=== PATIENT | female | born 1970 | race Caucasian/White ===

== ENCOUNTER → 2020-01-13 13:29 | Outpatient (BNVA) | payer SELFPAY | PROVIDERS: Referring Provider Physician Assistant Medical; Visit Provider Podiatrist Foot & Ankle Surgery | DX: M21.612 Bunion of left foot (principal); M21.611 Bunion of right foot; M79.671 Pain in right foot; M79.672 Pain in left foot | CPT/HCPCS: 73630 ==

== ENCOUNTER 2021-07-27 06:00 | Outpatient (RCR) | payer OTHER, SELFPAY | END 2021-08-02 23:59 | disposition home or self-care (01) | LOC: SPT 06:00 | PROVIDERS: PCP Family Medicine; Referring Provider Otolaryngology; Visit Provider Otolaryngology | DX: H81.10 Benign paroxysmal vertigo, unspecified ear (principal) | CPT/HCPCS: 95992; 97112; 97162 ==

== ENCOUNTER → 2023-04-30 13:58 | Outpatient (BNVA) | payer MEDICAID, SELFPAY | PROVIDERS: PCP Family Medicine; Visit Provider Nurse Practitioner Women's Health | DX: N89.8 Other specified noninflammatory disorders of vagina (principal); Z79.899 Other long term (current) drug therapy | CPT/HCPCS: 81000; 87624 ==

== ENCOUNTER 2023-07-02 09:07 | Day surgery (SDC) | payer OTHER, SELFPAY ==
[2023-07-02 09:20] VITALS: BP 162/74; PULSE 59; RESP 18; TEMP 36.4; O2SAT 96
--- NOTE | 2023-07-02 09:22 | P.ANESASSM_ITS ---
Pre-Anesthetic Assessment Height/Weight: Height 1.52 m Preop Diagnosis: screening Operation Date: 07/02/23 10:15 Proposed Procedures p [id number] egd [id number] colon G0121 screen colon A risk Z12.11 , K21.9(Not Applicable) - Ervin Calloway DO s Colonoscopy(Not Applicable) - Ervin Calloway DO Familial anesthetic complications: None Was Beta Danny taken within 24 hours: Yes Was Clonidine taken within 24 hours: N/A Last intake: 07/01/23 @2100 Social No alcohol and No tobacco Exam alert, oriented x 3 and regular rate & rhythm Airway Mallampati: Class II Dentition: full History/ROS No significant history except as noted Pulmonary None reported CV/HEM None reported None reported Hepatic None reported GI Gastroesophageal Reflux Disease Metabolic None reported Musc/skel Lower Back Pain Neuropsych migranes Anesthetic Plan ASA status: 3 Anesthesia: MAC Risk of > 500 ml blood loss (7ml/kg in children): No Medications/Allergies Home Medications Medication Instructions Recorded Confirmed Last Taken Type dimenhydrinate 50 mg tablet 50 mg PO Q8H PRN Motion Sickness 04/23/22 06/30/23 Unknown History (Dramamine) propranolol 40 mg tablet 40 mg PO BID 04/30/23 06/30/23 06/23/23 History estradiol 10 mcg vaginal tablet 10 mcg vaginal DAILY #30 tabs 05/01/23 06/30/23 06/30/23 Rx (Vagifem) escitalopram oxalate 20 mg tablet 20 mg PO DAILY 30 days #30 tabs 05/27/23 06/30/23 06/30/23 Rx pantoprazole 40 mg tablet,delayed 40 mg PO BID 6 weeks #84 tabs 05/29/23 06/30/23 06/30/23 Rx release (Protonix) oxybutynin chloride 5 mg 5 mg PO DAILY 06/30/23 06/30/23 06/30/23 History tablet,extended release 24 hr Allergies Allergy/AdvReac Type Severity Reaction Status Date / Time heparin Allergy Mild Unknown Verified 05/28/23 14:13 aspirin Allergy ALGY-Hives Verified 05/28/23 14:13 [facility] Anesthesia Medical History Psychiatric care Hypertension History of migraine Surgical History History of hysterectomy Family History Other Cancer Denies family history of Diabetes CAD (coronary artery disease) Clotting disorder Dementia Hyperlipidemia Psychiatric illness Chronic kidney disease (CKD) Suicide Anesthesia complication Bleeding disorder Family history of premature coronary artery disease Lung disease Hypertension Stroke Data Anesthesia Cardiac Studies: No Data to Display
[2023-07-02 09:31] VITALS: BMI 44.3
[2023-07-02] MEDS: sodium chloride 0.9% 1,000 ML 30 ML IV (10:00)
--- NOTE | 2023-07-02 10:09 | PM.HP ---
Providers/Chief Complaint Primary Care Provider: Indra Hines Chief Complaint: Z12.11, K21.9 History of Present Illness Yadira Elena is a 53 year old female Review of Systems General: Reports: 10 or more systems reviewed and unremarkable except in HPI and below Medications/Allergies Home Medications Medication Instructions Recorded Confirmed Last Taken Type dimenhydrinate 50 mg tablet 50 mg PO Q8H PRN Motion Sickness 04/23/22 06/30/23 Unknown History (Dramamine) propranolol 40 mg tablet 40 mg PO BID 04/30/23 06/30/23 06/23/23 History estradiol 10 mcg vaginal tablet 10 mcg vaginal DAILY #30 tabs 05/01/23 06/30/23 06/30/23 Rx (Vagifem) escitalopram oxalate 20 mg tablet 20 mg PO DAILY 30 days #30 tabs 05/27/23 06/30/23 06/30/23 Rx pantoprazole 40 mg tablet,delayed 40 mg PO BID 6 weeks #84 tabs 05/29/23 06/30/23 06/30/23 Rx release (Protonix) oxybutynin chloride 5 mg 5 mg PO DAILY 06/30/23 06/30/23 06/30/23 History tablet,extended release 24 hr Allergies Allergy/AdvReac Type Severity Reaction Status Date / Time heparin Allergy Mild Unknown Verified 05/28/23 14:13 aspirin Allergy ALGY-Hives Verified 05/28/23 14:13 PFSH Acute PFSH: Medical History Psychiatric care Hypertension History of migraine Surgical History History of hysterectomy Family History Other Cancer Denies family history of Diabetes CAD (coronary artery disease) Clotting disorder Dementia Hyperlipidemia Psychiatric illness Chronic kidney disease (CKD) Suicide Anesthesia complication Bleeding disorder Family history of premature coronary artery disease Lung disease Hypertension Stroke Vitals/I&O/Wt Last Vital Signs Temp 97.5 F L 07/02/23 09:20 Pulse 59 L 07/02/23 09:20 Resp 18 07/02/23 09:20 BP 162/74 07/02/23 09:20 Pulse Ox 96 07/02/23 09:20 O2 Del Method Room Air 07/02/23 09:20 Weight last 48 hrs Weight 227 lb A&P Assessment and plan (1) GERD (gastroesophageal reflux disease): (2) Colon cancer screening: Plan EGD and Colonoscopy Attestations Medical Necessity Statement*: home Coding Level of Care Code Acute Code for Chg Fwd Diagnoses GERD (gastroesophageal reflux disease) K21.9 Colon cancer screening Z12.11
[2023-07-02 10:30] VITALS: BP 134/75; PULSE 77; RESP 18; TEMP 36.6; O2SAT 95
[2023-07-02 10:45] VITALS: BP 152/75; PULSE 70; RESP 18; O2SAT 96
--- NOTE | 2023-07-02 15:25 | ANE.PACU2 ---
Inpatient post-anesthesia follow up: Airway intact: Yes Vital signs: Temperature 97.9 F Pulse Rate 70 Respiratory Rate 18 Blood Pressure 152/75 Pulse Oximetry 96 Oxygen Delivery Me thod Room Air Oxygen Flow Rate Fraction of Inspir ed Oxygen Hydration adequate: Yes Nausea and vomiting: No Pain level: 2 Mental status: Baseline
== END 2023-07-02 11:17 | disposition home or self-care (01) ==
PROVIDERS: PCP Family Medicine; Visit Provider Surgery
PROC: 0DJ08ZZ Inspection of Upper Intestinal Tract, Via Natural or Artificial Opening Endoscopic (ICD-10-PCS; CPT 43235; principal; 2023-07-02 10:15)
PROC: 0DJD8ZZ Inspection of Lower Intestinal Tract, Via Natural or Artificial Opening Endoscopic (ICD-10-PCS; CPT 45378; 2023-07-02 10:15)
DX: Z12.11 Encounter for screening for malignant neoplasm of colon (principal); K21.9 Gastro-esophageal reflux disease without esophagitis; I10 Essential (primary) hypertension; K29.50 Unspecified chronic gastritis without bleeding; K57.30 Diverticulosis of large intestine without perforation or abscess without bleeding
CPT/HCPCS: 43239; 45378; 88305; 88342; J2704; J3490; J7030

== ENCOUNTER 2023-07-30 16:22 | Inpatient (IN) | payer OTHER, SELFPAY ==
[2023-07-30 16:24] VITALS: BP 156/111; PULSE 98; RESP 18; TEMP 36.8; O2SAT 93; BMI 46.4
--- NOTE | 2023-07-30 16:32 | W.ED.PSYCHS ---
HPI - Psych General: Chief Complaint: Psychiatric Symptoms Stated Complaint: depression Time Seen by Provider: 07/30/23 16:22 Source: EMS Mode of arrival: EMS Limitations: no limitations History of Present Illness: 53-year-old female history depression states she has been having increasing depression over the last week states that she is feeling overwhelmed and is having passing suicidal thoughts. She denies any specific plan she has been taking her meds she states that she feels like she needs a voluntary admission to the psych [facility] to get help she has had no previous admissions in the past. Associated symptoms: Reports depression and suicidal ideation Review of Systems Const: Denies: fever(s), chills, body aches or change in appetite Eyes: Denies: blurry vision or eye discomfort Card: Denies: chest pain Resp: Denies: dyspnea GI: Denies: abdominal pain, nausea, vomiting or diarrhea Musc: Denies: neck pain or back pain Skin/Breast: Denies: rash Neuro: Denies: headache(s) Psych: Reports: depression and suicidal ideation [facility] ED PFSH: Medical History Psychiatric care Hypertension History of migraine Surgical History History of hysterectomy Family History Other Cancer Denies family history of Diabetes CAD (coronary artery disease) Clotting disorder Dementia Hyperlipidemia Psychiatric illness Chronic kidney disease (CKD) Suicide Anesthesia complication Bleeding disorder Family history of premature coronary artery disease Lung disease Hypertension Stroke Physical Exam Const: COMMON NORMALS: no acute distress, patient oriented x3 and healthy appearing HENMT: COMMON NORMALS: normocephalic and atraumatic HEAD & SCALP: normocephalic and atraumatic Eye: COMMON NORMALS: conjunctivae normal CONJUNCTIVA: Yes conjunctivae normal Neck/C-Spine: COMMON NORMALS: full ROM and supple Chest: COMMONS NORMALS: normal inspection of the chest Resp: COMMON NORMALS: normal respiratory effort Cardio: COMMON NORMALS: regular rate RATE: regular rate Extremity: COMMON NORMALS: normal to inspection and full ROM Neuro: COMMON NORMALS: patient oriented x3, moves all extremities and no focal motor deficits Psych: COMMON NORMALS: mental status grossly normal, Normal thought process present and cooperative MOOD & AFFECT: Yes tearful THOUGHT PROCESS: Normal thought process present THOUGHT CONTENT: Yes Suicidality present Skin: COMMON NORMALS: no rashes or lesions noted and no wounds GENERAL SKIN EXAM: no rashes or lesions noted Course Vital Signs: Vital signs: Vital Signs Temperature 98.2 F 07/30/23 16:24 Pulse Rate 98 07/30/23 17:21 Respiratory Rate 18 07/30/23 16:24 Blood Pressure 164/11 07/30/23 17:21 Pulse Oximetry 95 07/30/23 17:30 Oxygen Delivery Me thod Room Air 07/30/23 17:30 MDM - Psych Medical Decision Making Patient presents here with depression she is medically cleared she voluntarily wants to be admitted I spoke to psychiatrist will admit to the psych [facility] at this time Medical Records I reviewed the patient's medical records. Lab Data I reviewed the patient's lab results. 07/30/23 16:55 07/30/23 16:55 Laboratory Results WBC 5.54 10^3/uL (3.29-11.43) 07/30/23 16:55 RBC 4.39 10^6/uL (3.85-5.65) 07/30/23 16:55 Hgb 13.90 g/dL (11.27-16.99) 07/30/23 16:55 Hct 41.9 % (36-47) 07/30/23 16:55 MCV 95.4 fl (85-98) 07/30/23 16:55 MCH 31.7 pg (27-33) 07/30/23 16:55 MCHC 33.2 g/dL (30-55) 07/30/23 16:55 RDW 11.5 % (12.1-15.1) L 07/30/23 16:55 Plt Count 272 10^3/cmm (157-399) 07/30/23 16:55 MPV 8.8 fL (7.4-10.4) 07/30/23 16:55 Neut % (Auto) 37.1 % 07/30/23 16:55 Lymph % (Auto) 54.2 % 07/30/23 16:55 Baca % (Auto) 6.0 % 07/30/23 16:55 Eos % (Auto) 1.6 % 07/30/23 16:55 Baso % (Auto) 0.7 % 07/30/23 16:55 Neut # (Auto) 2.06 10^3/uL (1.8-7.7) 07/30/23 16:55 Lymph # (Auto) 3.0 10^3/uL (0.8-4.8) 07/30/23 16:55 Baca # (Auto) 0.3 10^3/uL (0.2-0.9) 07/30/23 16:55 Eos # (Auto) 0.1 10^3/uL (0.0-0.8) 07/30/23 16:55 Baso # (Auto) 0.0 10^3/uL (0.0-0.1) 07/30/23 16:55 Nucleated RBC % (auto) 0 % 07/30/23 16:55 Nucleated RBCs # 0.0 /100WBC 07/30/23 16:55 Sodium 140 mmol/L (136-145) 07/30/23 16:55 Potassium 4.3 mmol/L (3.5-5.1) 07/30/23 16:55 Chloride 103 mmol/L (98-107) 07/30/23 16:55 Carbon Dioxide 25 mmol/L (22-29) 07/30/23 16:55 Anion Gap 16.3 (5-19) 07/30/23 16:55 BUN 10 mg/dL (6-20) 07/30/23 16:55 Creatinine 0.6 mg/dL (0.5-0.9) 07/30/23 16:55 GFR Calculation 103.8 mL/min (90-130) 07/30/23 16:55 Glucose 114 mg/dL (65-115) 07/30/23 16:55 Calculated Osmolality 290 mOsm/kg (285-295) 07/30/23 16:55 Calcium 10.0 mg/dL (8.5-10.5) 07/30/23 16:55 Total Bilirubin 0.4 mg/dL (0.15-1.2) 07/30/23 16:55 AST 19 U/L (0-32) 07/30/23 16:55 ALT 31 U/L (0-33) 07/30/23 16:55 Alkaline Phosphatase 126 U/L (35-105) H 07/30/23 16:55 Total Protein 7.7 g/dL (6.6-8.7) 07/30/23 16:55 Albumin 4.3 g/dL (3.5-5.2) 07/30/23 16:55 Globulin 3.4 g/dL (1.3-4.6) 07/30/23 16:55 Salicylates < 0.3 mg/dL (3-10) L 07/30/23 16:55 Acetaminophen < 5.0 ug/mL (10-30) L 07/30/23 16:55 Ethyl Alcohol < 10 mg/dL (0-10) 07/30/23 16:55 No radiology studies performed this visit Discharge Plan Discharge Patient Disposition: Admitted As Inpatient Admit Provider: Jose Angel Mcgrath Clinical Impression: Depression Condition: Stable Coding Level of Care Code ED 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
[2023-07-30] MEDS: LORazepam 1 mg Tablet 2 MG PO (16:54)
[2023-07-30 17:08] LABS: Basophils % 0.7 %; Eosinophils # 0.1 10^3/uL (0.0-0.8); Eosinophils % 1.6 %; Hematocrit 41.9 % (36-47); Lymphocytes % 54.2 %; Mean Corpuscular HGB Conc 33.2 g/dL (30-55); Mean Corpuscular Hemoglobin 31.7 pg (27-33); Mean Corpuscular Volume 95.4 fl (85-98); Mean Platelet Volume 8.8 fL (7.4-10.4); Monocytes # 0.3 10^3/uL (0.2-0.9); Neutrophils # 2.06 10^3/uL (1.8-7.7); Neutrophils % 37.1 %; Nucleated Red Blood Cells % 0 %; Platelet Count 272 10^3/cmm (157-399); Red Blood Count 4.39 10^6/uL (3.85-5.65); Red Cell Distribution Width 11.5 % (12.1-15.1); White Blood Count 5.54 10^3/uL (3.29-11.43)
[2023-07-30 17:21] VITALS: BP 164/11; PULSE 98
[2023-07-30 17:30] VITALS: O2SAT 95
[2023-07-30 17:30] LABS: Alanine Aminotransferase 31 U/L (0-33); Albumin Level 4.3 g/dL (3.5-5.2); Alkaline Phosphatase 126 U/L (35-105); Anion Gap 16.3 (5-19); Aspartate Amino Transferase 19 U/L (0-32); Blood Urea Nitrogen 10 mg/dL (6-20); Carbon Dioxide 25 mmol/L (22-29); Chloride 103 mmol/L (98-107); Creatinine Clr Calc Pharmacy 174.4804; Globulin 3.4 g/dL (1.3-4.6); Glomerular Filtration Rate 103.8 mL/min (90-130); Glucose 114 mg/dL (65-115); Osmolality Calculated 290 mOsm/kg (285-295); Potassium 4.3 mmol/L (3.5-5.1); Sodium 140 mmol/L (136-145); Total Bilirubin 0.4 mg/dL (0.15-1.2); Total Protein 7.7 g/dL (6.6-8.7)
[2023-07-30 17:37] LABS: Acetaminophen < 5.0 ug/mL (10-30); Alcohol Level < 10 mg/dL (0-10); Salicylate < 0.3 mg/dL (3-10)
[2023-07-30] MEDS: metoprolol tartrate 25 mg Tablet PO (17:46)
[2023-07-30 18:06] VITALS: BP 151/93; PULSE 98; RESP 16; TEMP 36.6; O2SAT 98
[2023-07-30 19:24] LABS: Amphetamines Screen Urine Negative (Negative); Barbiturates Screen Urine Negative (Negative); Benzodiazepines Screen Urine Negative (Negative); Cocaine Screen Urine Negative (Negative); Opiate Screen Urine Negative (Negative); PCP Screen Urine Negative (Negative); THC Screen Urine Negative (Negative)
[2023-07-30 20:05] VITALS: BP 138/83; PULSE 90; RESP 15; TEMP 36.8; O2SAT 97
[2023-07-30] MEDS: nortriptyline 10 mg Capsule PO (20:36)
[2023-07-31 06:00] VITALS: BP 112/64; PULSE 98; RESP 17; TEMP 36.6; O2SAT 99
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
[2023-07-31] MEDS: escitalopram 10 mg Tablet 20 MG PO (08:08)
[2023-07-31] MEDS: oxybutynin chloride XL 5 MG TABLET PO (08:08)
[2023-07-31 14:00] VITALS: BP 116/71; PULSE 107; RESP 20; TEMP 36.6; O2SAT 96
[2023-07-31 19:39] VITALS: BP 167/96; PULSE 108; RESP 17; TEMP 36.7; O2SAT 96
[2023-07-31] MEDS: escitalopram 10 mg Tablet PO (20:35)
[2023-07-31] MEDS: nortriptyline 10 mg Capsule PO (20:35)
[2023-07-31] MEDS: acetaminophen 325 mg Tablet 650 MG PO (21:17)
[2023-08-01 06:00] VITALS: BP 129/75; PULSE 99; RESP 17; TEMP 36.6; O2SAT 96
--- NOTE | 2023-08-01 13:46 | P.NPUPN_ITS ---
Subjective NPU 2 Subjective: Patient presented today reporting that she is doing okay. She got her about both of Lexapro and is now at 30 mg daily and reports that she is feeling better. We discussed the ability of including a low-dose of Abilify but currently she is feeling like this might be what she needed. We discussed being able to make sure that her outpatient team is aware of our thinking. She denies any side effects to the medication. Mental Status Exam 2 MSE Comments: This is a morbidly obese [place] born female in hospital scrubs with adequate grooming and eye contact. No abnormal movements except for mild psychomotor retardation. Cooperative with exam and mild to moderate distress. Speech was normal rate and decreased volume. Mood described as depressed and overwhelmed, affect congruent. Thought process organized. Thought content: Patient denied current suicidal or homicidal ideation, there were no delusions reported or noted, she denied any auditory or visual hallucinations. Patient has significant depression and anxiety. She has issues with traumas from the past. She has thoughts of suicide but has not acted on them due to her grandbabies. She does not have problems with hearing things, seeing things, or paranoia. She has nightmares and flashbacks about past traumas.Attention and concentration were intact and memory appeared reliable but none were formally tested. She alert and oriented x 3. Insight and judgment appear fair impulse control limited. Vitals/I&O/Wt Last Vital Signs Temp 97.8 F 08/01/23 06:00 Pulse 99 08/01/23 06:00 Resp 17 08/01/23 06:00 BP 129/75 08/01/23 06:00 Pulse Ox 96 08/01/23 06:00 O2 Del Method Room Air 08/01/23 06:00 Weight last 48 hrs Weight 104.326 kg Data NPU 07/30/23 16:55 07/30/23 16:55 A&P Assessment and plan (1) PTSD (post-traumatic stress disorder): (2) Major depressive disorder: (3) Parent-child relational problem: (4) Marital/partner relational problem: (5) History of narcotic addiction: Plan This is a 53year old white female with a long history of addiction, trauma depression and significant recent challenges with PTSD who presents on medication reporting that she continues to have worsening of her symptoms. Patient is dealing with significant depression and anxiety, along with past traumas and a disintegrating relationship with her ex. She has a history of suicide attempts and has thoughts of suicide but has not acted on them. She has been diagnosed with PTSD. 1. Continue current medication. Increased Lexapro to 30 mg p.o. daily and consider possibly adding a mood stabilizer like Abilify. 2. Encourage individual, group and milieu therapy 3. Continue q-15 minute check for safety 4. Get collateral information. Involuntary Hold Information 2 96 Hour Hold: 96 Hour Involuntary Admission: No Attestations NPU 2 Medical Necessity Statement*: Inpatient hospitalization is medically necessary and the clinically appropriate intervention at this time. We will monitor medications and make changes as indicated. Likely length of stay is 2-4 days. Coding Level of Care Code Acute Code for [facility] Diagnoses PTSD (post-traumatic stress disorder) F43.10 Major depressive disorder F32.9 Parent-child relational problem Z62.820 Marital/partner relational problem Z63.0 History of narcotic addiction F11.21
[2023-08-01 14:00] VITALS: BP 135/84; PULSE 96; RESP 16; TEMP 36.6; O2SAT 95
[2023-08-01 20:11] VITALS: BP 134/68; PULSE 101; RESP 17; TEMP 36.7; O2SAT 95
[2023-08-01] MEDS: meclizine 25 mg tablet PO (20:30)
[2023-08-01] MEDS: escitalopram 10 mg Tablet 30 MG PO (20:30)
[2023-08-01] MEDS: oxybutynin chloride XL 5 MG TABLET PO (20:30)
[2023-08-01] MEDS: nortriptyline 10 mg Capsule PO (20:30)
[2023-08-02 06:00] VITALS: BP 130/77; PULSE 107; RESP 17; TEMP 36.6; O2SAT 97
--- NOTE | 2023-08-02 11:47 | P.NPUPN_ITS ---
Subjective NPU 2 Subjective: Patient presented today reporting that she is feeling a little better overall and is starting to feel optimistic about things moving back in the right direction. She reports she has been going to groups and getting a lot out of that and trying to his mindfulness. She reports the increase in the Lexapro has been effective and she denied any side effects of the medication. We agreed to the targeted discharge date of Friday. Mental Status Exam 2 MSE Comments: This is a morbidly obese [place] born female in hospital scrubs with adequate grooming and eye contact. No abnormal movements except for mild psychomotor retardation. Cooperative with exam and mild distress. Speech was normal rate and decreased volume. Mood described as starting to feel better, affect congruent. Thought process organized. Thought content: Patient denied current suicidal or homicidal ideation, there were no delusions reported or noted, she denied any auditory or visual hallucinations. Patient has significant depression and anxiety. She has issues with traumas from the past. She does not have problems with hearing things, seeing things, or paranoia. She has nightmares and flashbacks about past traumas.Attention and concentration were intact and memory appeared reliable but none were formally tested. She alert and oriented x 3. Insight and judgment appear fair impulse control limited. Vitals/I&O/Wt Last Vital Signs Temp 97.8 F 08/02/23 06:00 Pulse 107 H 08/02/23 06:00 Resp 17 08/02/23 06:00 BP 130/77 08/02/23 06:00 Pulse Ox 97 08/02/23 06:00 O2 Del Method Room Air 08/02/23 06:00 Data NPU 07/30/23 16:55 07/30/23 16:55 A&P Assessment and plan (1) PTSD (post-traumatic stress disorder): (2) Major depressive disorder: (3) Parent-child relational problem: (4) Marital/partner relational problem: (5) History of narcotic addiction: Plan This is a 53year old white female with a long history of addiction, trauma depression and significant recent challenges with PTSD who presents on medication reporting that she continues to have worsening of her symptoms. Patient is dealing with significant depression and anxiety, along with past traumas and a disintegrating relationship with her ex. She has a history of suicide attempts and has thoughts of suicide but has not acted on them. She has been diagnosed with PTSD. 1. Continue current medication. Increased Lexapro to 30 mg p.o. daily and we agreed to leave the decision of possibly adding a small dose of Abilify to her outpatient team. 2. Encourage individual, group and milieu therapy 3. Continue q-15 minute check for safety 4. Plan for discharge on Friday. Involuntary Hold Information 2 96 Hour Hold: 96 Hour Involuntary Admission: No Attestations NPU 2 Medical Necessity Statement*: Inpatient hospitalization is medically necessary and the clinically appropriate intervention at this time. We will monitor medications and make changes as indicated. Likely length of stay is 2 days. Coding Level of Care Code Acute Code for [facility] Diagnoses PTSD (post-traumatic stress disorder) F43.10 Major depressive disorder F32.9 Parent-child relational problem Z62.820 Marital/partner relational problem Z63.0 History of narcotic addiction F11.21
[2023-08-02 14:00] VITALS: BP 162/83; PULSE 105; RESP 16; TEMP 36.8; O2SAT 94
[2023-08-02] MEDS: ibuprofen 600 mg Tablet PO (14:44)
[2023-08-02 19:31] VITALS: BP 167/72; PULSE 99; RESP 17; TEMP 37.2; O2SAT 96
[2023-08-02] MEDS: meclizine 25 mg tablet PO (20:18)
[2023-08-02] MEDS: escitalopram 10 mg Tablet 30 MG PO (20:18)
[2023-08-02] MEDS: oxybutynin chloride XL 5 MG TABLET PO (20:18)
[2023-08-02] MEDS: nortriptyline 10 mg Capsule PO (20:19)
[2023-08-03 06:00] VITALS: BP 143/91; PULSE 98; RESP 16; TEMP 36.6; O2SAT 95
--- NOTE | 2023-08-03 11:50 | P.NPUPN_ITS ---
Subjective NPU 2 Subjective: Patient presented today reporting that she is feeling a little better and more optimistic about how things are going. She reports that she continues to feel like she will be ready to discharge tomorrow. We discussed making sure the social work team was able to get her appointments scheduled. She denied any side effects of the medication and continue to report a desire to move forward with this increase in Lexapro and consider the need for other changes later. Mental Status Exam 2 MSE Comments: This is a morbidly obese [place] born female in hospital scrubs with adequate grooming and eye contact. No abnormal movements except for mild psychomotor retardation. Cooperative with exam in no acute distress. Speech was normal rate and decreased volume. Mood described as feeling better, affect congruent. Thought process organized. Thought content: Patient denied current suicidal or homicidal ideation, there were no delusions reported or noted, she denied any auditory or visual hallucinations. Patient has significant depression and anxiety. She has issues with traumas from the past. She does not have problems with hearing things, seeing things, or paranoia. She has nightmares and flashbacks about past traumas.Attention and concentration were intact and memory appeared reliable but none were formally tested. She alert and oriented x 3. Insight and judgment appear fair impulse control limited. Vitals/I&O/Wt Last Vital Signs Temp 97.8 F 08/03/23 06:00 Pulse 98 08/03/23 06:00 Resp 16 08/03/23 06:00 BP 143/91 08/03/23 06:00 Pulse Ox 95 08/03/23 06:00 O2 Del Method Room Air 08/03/23 06:00 Weight last 48 hrs Weight 104.326 kg Data NPU 07/30/23 16:55 07/30/23 16:55 A&P Assessment and plan (1) PTSD (post-traumatic stress disorder): (2) Major depressive disorder: (3) Parent-child relational problem: (4) Marital/partner relational problem: (5) History of narcotic addiction: Plan This is a 53year old white female with a long history of addiction, trauma depression and significant recent challenges with PTSD who presents on medication reporting that she continues to have worsening of her symptoms. Patient is dealing with significant depression and anxiety, along with past traumas and a disintegrating relationship with her ex. She has a history of suicide attempts and has thoughts of suicide but has not acted on them. She has been diagnosed with PTSD. 1. Continue current medication. Increased Lexapro to 30 mg p.o. daily and we agreed to leave the decision of possibly adding a small dose of Abilify to her outpatient team. 2. Encourage individual, group and milieu therapy 3. Continue q-15 minute check for safety 4. Plan for discharge on Friday. Involuntary Hold Information 2 96 Hour Hold: 96 Hour Involuntary Admission: No Attestations NPU 2 Medical Necessity Statement*: Inpatient hospitalization is medically necessary and the clinically appropriate intervention at this time. We will monitor medications and make changes as indicated. Likely length of stay is 1 days. Coding Level of Care Code Acute Code for [facility] Diagnoses PTSD (post-traumatic stress disorder) F43.10 Major depressive disorder F32.9 Parent-child relational problem Z62.820 Marital/partner relational problem Z63.0 History of narcotic addiction F11.21
[2023-08-03 14:00] VITALS: BP 146/85; PULSE 95; RESP 16; TEMP 36.7; O2SAT 98
[2023-08-03] MEDS: nortriptyline 10 mg Capsule PO (20:07)
[2023-08-03] MEDS: escitalopram 10 mg Tablet 30 MG PO (20:07)
[2023-08-03] MEDS: meclizine 25 mg tablet PO (20:08)
[2023-08-03] MEDS: oxybutynin chloride XL 5 MG TABLET PO (20:08)
[2023-08-03 20:41] VITALS: BP 149/96; PULSE 95; RESP 17; TEMP 36.8; O2SAT 95
[2023-08-04 06:00] VITALS: BP 140/83; PULSE 99; RESP 17; TEMP 36.4; O2SAT 96
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
== END 2023-08-04 10:04 | disposition home or self-care (01) | DRG 881 ==
LOC: ER 16:50 → NP 17:03
PROVIDERS: Admitting Provider Psychiatry & Neurology Psychiatry; Emergency Provider Emergency Medicine; PCP Family Medicine; Visit Provider Psychiatry & Neurology Psychiatry
DX: F32.9 Major depressive disorder, single episode, unspecified (principal); R45.851 Suicidal ideations; Z68.42 Body mass index [BMI] 45.0-49.9, adult; I10 Essential (primary) hypertension; E66.01 Morbid (severe) obesity due to excess calories; F43.10 Post-traumatic stress disorder, unspecified; F11.11 Opioid abuse, in remission; Z63.0 Problems in relationship with spouse or partner; Z62.820 Parent-biological child conflict
CPT/HCPCS: 36415; 80053; 80306; 80307; 85025; 97150; 97165; 99285; J8597

== ENCOUNTER 2023-08-20 10:43 | Outpatient (CLI) | payer OTHER, SELFPAY ==
--- NOTE | 2023-08-20 11:30 | MM_ITS ---
WS: [id number] VIEWS: MLO and CC views both breasts. 3D digital tomosynthesis is also included in this exam. No priors. Findings: There was no sign of mass, architectural distortion or suspicious calcification in either breast. The breasts are almost entirely fatty. Impression: MM/[place] [id number] BI-RADS: 1-Negative FOLLOW-UP: 1 Year Follow-up This mammogram was also analyzed by the Computer Aided Detection System R2 [employer].
== END 2023-08-20 10:44 | disposition home or self-care (01) ==
LOC: RAD 10:43
PROVIDERS: PCP Family Medicine; Visit Provider Nurse Practitioner Women's Health
DX: Z12.31 Encounter for screening mammogram for malignant neoplasm of breast (principal)
CPT/HCPCS: 77063; 77067

== ENCOUNTER → 2023-10-28 08:08 | Outpatient (BNVA) | payer OTHER, SELFPAY | PROVIDERS: PCP Family Medicine; Visit Provider Orthopaedic Surgery | DX: M54.9 Dorsalgia, unspecified (principal) | CPT/HCPCS: 72110 ==

== ENCOUNTER → 2023-11-04 16:08 | Outpatient (BNVA) | payer OTHER, SELFPAY | PROVIDERS: PCP Family Medicine; Visit Provider Orthopaedic Surgery | DX: M48.062 Spinal stenosis, lumbar region with neurogenic claudication (principal); Z09 Encounter for follow-up examination after completed treatment for conditions other than malignant neoplasm | CPT/HCPCS: 80053; 81003; 85025 ==

== ENCOUNTER → 2023-11-14 10:04 | Outpatient (BNVA) | payer OTHER, SELFPAY | PROVIDERS: PCP Family Medicine; Visit Provider Family Medicine | DX: Z01.818 Encounter for other preprocedural examination (principal) | CPT/HCPCS: 80053; 81003; 85025; 87086 ==

== ENCOUNTER 2024-02-11 13:04 | Observation (INO) | payer OTHER, SELFPAY ==
[2024-02-11] VITALS (16 sets, daily range): BP systolic 82–146; BP diastolic 61–87; PULSE 71–92; RESP 16–18; TEMP 36.2–36.7; O2SAT 91–100; BMI 45.0
--- NOTE | 2024-02-11 | XR_ITS ---
WS: [id number] XR lumbar spine 2-3V* [id number] REASON FOR EXAM: EMMA PICS FINDINGS: Posterior decompression with bilateral posterior pedicle screws L4-S1. Interbody fusion devices L4-L5 and L5-S1. Surgical appliances are intact and in proper position and alignment. XR/XR lumbar spine 2-3V* [id number] IMPRESSION: Posterior lumbar fusion without abnormality as above.
[2024-02-11] MEDS: sodium chloride 0.9% 1,000 ML 30 ML IV (11:14)
--- NOTE | 2024-02-11 12:19 | W.PM.OPSFHP ---
Same Day Surgery H&P Indication for Procedure/HPI DATE OF PROCEDURE: February 11, 2024 CHIEF COMPLAINT/INDICATIONFOR SURGICAL PROCEDURE: Back and left leg pain PREOP DIAGNOSIS: Lumbar stenosis with neurogenic claudication PLANNED PROCEDURE: Operation Date: 02/11/24 13:00 Proposed Procedures p Spinal Fusion PSF(Not Applicable) - Galo Coley DO s Posterior Lumbar Interbody Fusion PLIF(Not Applicable) - Galo Coley DO Medications/Allergies* Home Medications Medication Instructions Recorded Confirmed Type escitalopram oxalate 20 mg tablet 30 mg PO BEDTIME 02/10/24 02/10/24 History oxybutynin chloride 5 mg 5 mg PO QPM 02/10/24 02/10/24 History tablet,extended release 24 hr pantoprazole 40 mg tablet,delayed 40 mg PO QPM 02/10/24 02/10/24 History release (Protonix) Allergies/Adverse Reactions Allergy/AdvReac Type Severity Reaction Status Date / Time heparin Allergy Mild Unknown Verified 11/14/23 10:12 aspirin Allergy ALGY-Hives Verified 11/14/23 10:12 Current Medications: Generic Name Dose Route Start Last Admin Trade Name Freq PRN Reason Stop Dose Admin Sodium Chloride 1,000 mls @ 30 mls/hr 02/11/24 10:45 02/11/24 11:14 Sodium Chloride 0.9% IV 02/12/24 10:44 30 mls/hr .Q24H ROQUE Administration Pertinent History/Comorbid Conditions* Medical History (Updated 10/28/23 @ 08:46 by Galo Coley DO) Depression Psychiatric care Hypertension History of migraine Surgical History (Updated 08/07/21 @ 13:37 by Dave Vizcarra MD) History of hysterectomy Family History (Updated 01/13/20 @ 13:51 by Eula Colin LPN) Cancer Denies family history of Diabetes CAD (coronary artery disease) Clotting disorder Dementia Hyperlipidemia Psychiatric illness Chronic kidney disease (CKD) Suicide Anesthesia complication Bleeding disorder Family history of premature coronary artery disease Lung disease Hypertension Stroke Social History Smoking and tobacco/nicotine status: never used tobacco/nicotine Pertinent Exam Findings alert, oriented x 3 and procedure specific exam findings Recommendations Surgery/Procedure today Coding Level of Care Code Acute Code for Chg Fwd
--- NOTE | 2024-02-11 12:23 | ANES.PREANE2 ---
Pre-Anesthetic Assessment Height/Weight: Height 1.5 m Weight 101.151 kg Temp Pulse Resp BP Pulse Ox O2 Del Method 98.0 F 71 17 146/75 97 Room Air 02/11/24 10:59 02/11/24 10:59 02/11/24 10:59 02/11/24 10:59 02/11/24 10:59 02/11/24 10:59 Preop Diagnosis: Lumbar stenosis with neurogenic claudication Operation Date: 02/11/24 13:00 Proposed Procedures p Spinal Fusion PSF(Not Applicable) - Galo Coley DO s Posterior Lumbar Interbody Fusion PLIF(Not Applicable) - Galo Coley DO Familial anesthetic complications: None Was Beta Danny taken within 24 hours: N/A Was Clonidine taken within 24 hours: N/A Last intake: Intake Last Liquid Date 02/10/24 Last Liquid Time 21:00 Last Solid Date 02/10/24 Last Solid Time 21:00 Social No alcohol and No tobacco Exam alert, oriented x 3, clear to auscultation bilaterally and regular rate & rhythm Airway Mallampati: Class IV Dentition: chipped (Back R upper molar broken) Pulmonary Sleep Apnea Metabolic Morbid Obesity Anesthetic Plan ASA status: 2 Anesthesia: General Risk of > 500 ml blood loss (7ml/kg in children): Yes, adequate IV access and fluids planned Medications/Allergies Home Medications Medication Instructions Recorded Confirmed Last Taken Type Bone Growth Stimulator #1 ea 02/09/24 Unknown Rx escitalopram oxalate 20 mg tablet 30 mg PO BEDTIME 02/10/24 02/10/24 02/10/24 History oxybutynin chloride 5 mg 5 mg PO QPM 02/10/24 02/10/24 02/10/24 History tablet,extended release 24 hr pantoprazole 40 mg tablet,delayed 40 mg PO QPM 02/10/24 02/10/24 02/10/24 History release (Protonix) Allergies Allergy/AdvReac Type Severity Reaction Status Date / Time heparin Allergy Mild Unknown Verified 11/14/23 10:12 aspirin Allergy ALGY-Hives Verified 11/14/23 10:12 Current Medications Generic Name Dose Route Start Last Admin Trade Name Freq PRN Reason Stop Dose Admin Sodium Chloride 1,000 mls @ 30 mls/hr 02/11/24 10:45 02/11/24 11:14 Sodium Chloride 0.9% IV 02/12/24 10:44 30 mls/hr .Q24H ROQUE Administration PFSH Anesthesia Medical History Depression Psychiatric care Hypertension History of migraine Surgical History History of hysterectomy Family History Other Cancer Denies family history of Diabetes CAD (coronary artery disease) Clotting disorder Dementia Hyperlipidemia Psychiatric illness Chronic kidney disease (CKD) Suicide Anesthesia complication Bleeding disorder Family history of premature coronary artery disease Lung disease Hypertension Stroke Social History Smoking and tobacco/nicotine status: never used tobacco/nicotine Data Anesthesia Cardiac Studies: No Data to Display
[2024-02-11] MEDS: ceFAZolin 2,000 mg SDV 2000 MG IVP ×2 (13:08→20:59)
[2024-02-11] MEDS: vancomycin 1,000 MG SDV 1000 MG XX (14:02)
[2024-02-11] MEDS: lidocaine-epi 1% 20 mL INJ INJECTION (14:03)
--- NOTE | 2024-02-11 16:26 | P.OP_ITS ---
Operative Report Date of procedure: February 11, 2024 Pre-op diagnosis: Lumbar stenosis with neurogenic claudication Post-op diagnosis: same Procedure done: 1. L5/S1 Interbody fusion wposterolateral fusion 2. L4/5 Interbody fusion with posterolateral fusion 3. Instrumentation L4-S1 4. Cage at L4/5 5. Cage L5/S1 6. L5-S1 laminectomy with facetectomy for purpose of decompressing nerve 7. L4-5 laminectomy with facetectomy for purpose of decompressing nerve 8. use of autograft from same incision 9. allograft 10. Bone marrow aspirate from right iliac crest 11. Use of computer navigation / stereotactic for spine Surgeon: Galo Coley DO Estimated blood loss (mL): 600 Procedure: Operative Report 1. L5/S1 Interbody fusion wposterolateral fusion 2. L4/5 Interbody fusion with posterolateral fusion 3. Instrumentation L4-S1 4. Cage at L4/5 5. Cage L5/S1 6. L5-S1 laminectomy with facetectomy for purpose of decompressing nerve 7. L4-5 laminectomy with facetectomy for purpose of decompressing nerve 8. use of autograft from same incision 9. allograft 10. Bone marrow aspirate from right iliac crest 11. Use of computer navigation / stereotactic for spine Patient is brought to the operative suite. After undergoing anesthesia, the patient had neuro monitoring attached. Patient was then placed in the prone position on the Sergei table. All areas of impingement were well-padded. Patient was then prepped and draped in the normal sterile fashion. Skin inc ision was then made from L4-S1. Subperiosteal dissection was made out to the transverse processes of L4 bilaterally, L5 bilaterally and S1 ala bilaterally. Attention was then brought to the Yapert bone marrow aspirate kit was used to aspirate bone marrow aspirate. This was done by using the sharp probe to open up the bone. Aspiration was performed and then the blunt probe was then used to dissect down to through the bone tunnel. An aspirating well drawn back a millimeter approximately 20 cc of bone marrow aspirate was used. Admixed with the allograft and autograft bone that will be used. Patient is brought to present to pins in the right iliac crest. These pins were removed at the end the case. This is where the fiducial was attached with computer navigation. The computer navigation was attached and the serial jose and spun on the patient information from the C-arm was then loaded the computer for the use of computer navigation for pedicle screws. The technique for placing the pedicle screws was to use a drill followed by the gearshift probe linked to computer navigation. Followed by the ball probe to feel the superior inferior medial lateral cortez of the pedicles. Then placement of the screws using computer navigation. Was done at each pedicle. Screws were placed at L4 bilaterally, L5 bilaterally and S1 bilaterally. Next attention was brought to performing the laminectomy ofL5. This was done using the high-speed bur Kerrisons and curettes. Once the lamina was removed and then attention was brought to performing a partial facetectomy on the contralateral side. This was done again using the high-speed bur curettes and Kerrisons. The ligamentum flavum was taken down bilaterally from L5 to S1. Attention was then brought to the facet on the ipsilateral side. The facet was taken down. The S1 nerve was decompressed as it passed around the S1 pedicle. The laminectomy was done for purposes of decompressing the nerve as well as placement of the cage. The L5 nerve was identified as it traversed through the L5/S1 foramen. The thecal sac was identified and retracted. The L5/S1 disc base was identified. Using a knife the disc base was opened. And then sequential patricia were placed. The first shaver was a 6 and the last shaver was a 12. Using a pituitary and down going curette the endplates were scraped and disc material was removed from the space. Once adequate decompression of the disc base was felt to be had. Osteoamp sponge was packed into the anterior aspect of the disc base. Then a size 13 cage from [employer] was placed after packing osteoamp into the cage. While placing the cage the thecal sac and S1 nerve was protected. C arm was used to ensure that the cages placed in the appropriate position. Next attention was brought to performing the laminectomy ofL4. This was done using the high-speed bur Kerrisons and curettes. Once the lamina was removed and then attention was brought to performing a partial facetectomy on the contralateral side. This was done again using the high-speed bur curettes and Kerrisons. The ligamentum flavum was taken down bilaterally from L4 to L5. Attention was then brought to the facet on the ipsilateral side. The facet was taken down. The L5 nerve was decompressed as it passed around the L5 pedicle. The laminectomy was done for purposes of decompressing the nerve as well as placement of the cage. The L4 nerve was identified as it traversed through the L4/5 foramen. The thecal sac was identified and retracted. The L4/5 disc base was identified. Using a knife the disc base was opened. And then sequential patricia were placed. The first shaver was a 6 and the last shaver was a 12. Using a pituitary and down going curette the endplates were scraped and disc mat erial was removed from the space. Once adequate decompression of the disc base was felt to be had. Osteoamp sponge was packed into the anterior aspect of the disc base. Then a size 13 cage from [employer] was placed after packing osteoamp into the cage. While placing the cage the thecal sac and L5 nerve was protected. C arm was used to ensure that the cages placed in the appropriate position. Attention was then brought to attaching the rods to the screws placed in the L 4 bilaterally, L5 bilaterally and S1 bilaterally. Caps were torqued into position. Locking the construct in place. Wound was copiously irrigated and then attention was brought to decorticating the facets and transverse processes laterally. Bone that was taken down from the lamina was used along with osteoamp fibers and sponges were packed into the lateral gutters along the facet joints. This was done bilaterally. Wound was then closed in a layered fashion starting with the thoracolumbar fascia. 0-vicryl was used the sub cutaneous tissue was closed with 2-0 vicryl and skin with 4-0 monocryl. Glue was then used to seal the skin and a steril dressing was applied. Patient was then placed in the supine position. The endotracheal tube was removed and patient was transferred to the PACU in stable condition.
--- NOTE | 2024-02-11 17:30 | ANE.PACU2 ---
Inpatient post-anesthesia follow up: Airway intact: Yes Vital signs: Temperature 98.3 F Pulse Rate 97 Respiratory Rate 15 Blood Pressure 113/63 Pulse Oximetry 91 Oxygen Delivery Me thod Room Air Oxygen Flow Rate 2 Fraction of Inspir ed Oxygen Hydration adequate: Yes Nausea and vomiting: No Pain level: 1 Mental status: Baseline
[2024-02-11] MEDS: lactated ringers 1,000 ML 90 ML IV (19:05)
[2024-02-11] MEDS: oxybutynin chloride XL 5 MG TABLET PO (19:06)
[2024-02-11] MEDS: docusate sodium 100 mg Capsule PO (19:06)
[2024-02-11] MEDS: ketorolac 30 mg/mL INJ IVP (19:06)
[2024-02-11] MEDS: pantoprazole DR 40 mg Tablet PO (19:06)
[2024-02-11] MEDS: morphine 4 mg/mL SDV 1 mL 2 MG IVP ×2 (20:33→22:09)
[2024-02-11] MEDS: escitalopram 10 mg Tablet 30 MG PO (20:59)
[2024-02-11] MEDS: HYDROcodone-acetaminophen 5-325 mg Tablet PO (21:05)
[2024-02-12] VITALS (10 sets, daily range): BP systolic 91–177; BP diastolic 48–72; PULSE 79–97; RESP 15–18; TEMP 36.6–37.7; O2SAT 91–97
[2024-02-12] MEDS: morphine 4 mg/mL SDV 1 mL 2 MG IVP ×3 (02:46→22:52)
[2024-02-12] MEDS: ketorolac 30 mg/mL INJ IVP ×2 (02:46→13:36)
[2024-02-12] MEDS: HYDROcodone-acetaminophen 5-325 mg Tablet PO ×4 (03:54→23:50)
[2024-02-12] MEDS: ceFAZolin 2,000 mg SDV 2000 MG IVP ×2 (05:32→13:36)
[2024-02-12] MEDS: lactated ringers 1,000 ML 90 ML IV (05:33)
[2024-02-12 05:47] LABS: Hematocrit 26.7 % (36-47)
--- NOTE | 2024-02-12 07:59 | P.PN_ITS ---
Subjective 2 Subjective: Patient is complaining of numbness and weakness in the left leg. It is improved since last night is just in the foot now patient has 4-5 strength plantarflexion dorsiflexion. This point will get up with physical therapy Vitals/I&O/Wt Last Vital Signs Temp 98.8 F 02/12/24 04:28 Pulse 97 02/12/24 04:28 Resp 18 02/12/24 05:34 BP 131/72 02/12/24 04:28 Pulse Ox 97 02/12/24 05:34 O2 Del Method Room Air 02/11/24 20:25 O2 Flow Rate 2 02/11/24 20:25 02/11/24 02/12/24 02/12/24 22:59 06:59 14:59 Intake Total 1640 / 1640 1902 / 3542 Output Total 1450 / 1450 810 / 2260 Balance 190 / 190 1092 / 1282 Weight last 48 hrs Weight 229 lb 14.4 oz Weight 224 lb Weight 223 lb Physical Exam 2 Narrative: Peripheral strength plantarflexion dorsiflexion of the left foot. Decreased sensation. Has improved since last night patient stated. Urinary Catheter Management: Shah: Cath Placed During This Visit: yes Reason for Continuing Indwelling Catheter: Required Immobilization for Trauma or Surgery or Anesthesia Urinary Catheter Date of Insertion: 02/11/24 Urinary Catheter Time of Insertion: 13:19 Data 02/12/24 05:12 A&P Assessment and plan (1) Status post lumbar spinal fusion: Postop day #1 L4-S1 posterior spine fusion Up with physical therapy Anticipate discharge tomorrow. Attestations 2 Medical Necessity Statement*: Pain control Coding Level of Care Code Acute Code for Chg Fwd Diagnoses Status post lumbar spinal fusion Z98.1
[2024-02-12] MEDS: docusate sodium 100 mg Capsule PO ×2 (08:58→17:27)
--- NOTE | 2024-02-12 10:14 | PC.CHAP ---
Pastoral Care Encounter/Spiritual Assessment Type of Contact [] Declined vineyard tender visit [] Patient/Family/Request visit [] Outpatient visit [] Follow-up visit [] Physician referral [] Code/Alert [x] Routine visit [] Staff referral [] Actively dying [] Patient sleeping [] Family support [] [] Out of room [] Palliative care [] [] Receiving care in room [] Pre-surgical visit [] Trauma [] Long length of stay [] ICU visit [] Other: Relational/Emotional Strength [x] Patient feels connected with others/family/visitors/staff [] Distress [] Loneliness/isolation [] Abandonment Spirituality of Patient [x] Person of Ritu [] Attends Oriental Orthodox of their Ritu [x] Believes in Prayer [] Reads Bible or Yazdanism materials [] There are Spiritual issues to be addressed Construction [employer]or Interventions [x] Prayer [x] Active listening [x] Non-anxious presence [x] Spiritual/emotional support [] Crisis/trauma care [] Spiritual counseling [] Bereavement support [] Provided bereavement packet [] Provided Bible/devotional materials [] Provided toy/stuffed animal, coloring book to patient or family member [] Provided Communion [] Anointing/[place] [] Salvation [x] Completed spiritual assessment [] Other: Impact on Illness or Injury [] Angry [] Fearful [] Anxious [] Often cries [] Exhaustion [] Unable to work [] Unable to attend caodaism [] Unable to walk/stand [] Unable to read [] Unable to drive [] Unable to eat/drink [] Unable to sleep [] Unable to be with family [] Patient intubated [] Other: Summary Time spent with patient 5 min
[2024-02-12 14:45] LABS: Basophils % 0.1 %; Hematocrit 23.6 % (36-47); Lymphocytes # 2.3 10^3/uL (0.8-4.8); Lymphocytes % 17.3 %; Mean Corpuscular HGB Conc 32.6 g/dL (30-55); Mean Corpuscular Hemoglobin 31.7 pg (27-33); Mean Corpuscular Volume 97.1 fl (85-98); Mean Platelet Volume 9.5 fL (7.4-10.4); Monocytes # 1.1 10^3/uL (0.2-0.9); Neutrophils # 9.69 10^3/uL (1.8-7.7); Neutrophils % 74.2 %; Nucleated Red Blood Cells % 0 %; Platelet Count 185 10^3/cmm (157-399); Red Blood Count 2.43 10^6/uL (3.85-5.65); Red Cell Distribution Width 12.4 % (12.1-15.1); White Blood Count 13.06 10^3/uL (3.29-11.43)
[2024-02-12] MEDS: pantoprazole DR 40 mg Tablet PO (17:27)
[2024-02-12] MEDS: oxybutynin chloride XL 5 MG TABLET PO (17:27)
[2024-02-12] MEDS: sodium chloride 0.9% 1,000 ML 125 ML IV (22:52)
[2024-02-12] MEDS: cyclobenzaprine 10 mg Tablet PO (22:54)
[2024-02-12] MEDS: escitalopram 10 mg Tablet 30 MG PO (22:54)
[2024-02-13] VITALS (7 sets, daily range): BP systolic 120–128; BP diastolic 55–65; PULSE 72–82; RESP 16–18; TEMP 36.8–36.9; O2SAT 90–95
[2024-02-13] MEDS: acetaminophen 325 mg Tablet 650 MG PO (03:38)
[2024-02-13] MEDS: oxyCODONE 5 mg IR Tab/Cap PO ×2 (03:39→12:25)
[2024-02-13] MEDS: ketorolac 30 mg/mL INJ IVP (05:11)
[2024-02-13] MEDS: cyclobenzaprine 10 mg Tablet PO (05:11)
[2024-02-13] MEDS: morphine 4 mg/mL SDV 1 mL 2 MG IVP (05:11)
[2024-02-13 05:15] LABS: Basophils % 0.1 %; Eosinophils % 0.4 %; Lymphocytes # 3.3 10^3/uL (0.8-4.8); Lymphocytes % 36.8 %; Mean Corpuscular HGB Conc 32.2 g/dL (30-55); Mean Corpuscular Hemoglobin 31.8 pg (27-33); Mean Corpuscular Volume 98.7 fl (85-98); Mean Platelet Volume 9.3 fL (7.4-10.4); Monocytes # 0.6 10^3/uL (0.2-0.9); Monocytes % 6.6 %; Neutrophils # 5.02 10^3/uL (1.8-7.7); Neutrophils % 55.7 %; Nucleated Red Blood Cells % 0 %; Platelet Count 164 10^3/cmm (157-399); Red Blood Count 2.33 10^6/uL (3.85-5.65); Red Cell Distribution Width 12.7 % (12.1-15.1); White Blood Count 9.03 10^3/uL (3.29-11.43)
[2024-02-13] MEDS: sodium chloride 0.9% 1,000 ML 125 ML IV (06:03)
[2024-02-13] MEDS: docusate sodium 100 mg Capsule PO (08:51)
--- NOTE | 2024-02-13 08:51 | PM.DCS ---
Discharge Providers Date of Admission: 02/11/24 13:04 Date of Discharge: February 13, 2024 Attending Provider at Admission: Galo Coley DO Attending Provider at Discharge: Galo Coley DO Primary Care Provider: Indra Hines Diagnoses at Discharge Discharge Diagnosis (1) Status post lumbar spinal fusion: Status: Acute Reason for Visit Reason for Visit: M48.062 Physical Exam Narrative: Patient's foot is improving strength still weak sensation is intact but her foot is moving better today. She ambulated with physical therapy history 43 did well. Urinary Catheter Management: Shah: Cath Placed During This Visit: yes Reason for Continuing Indwelling Catheter: Required Immobilization for Trauma or Surgery or Anesthesia Urinary Catheter Date of Insertion: 02/11/24 Urinary Catheter Time of Insertion: 13:19 Discharge Data Studies Completed and Pending Pending at discharge Category Date Time Status C-arm Fluoroscopy 14102 Routine Exams 02/11/24 10:46 Taken Laboratory Results WBC 9.03 10^3/uL (3.29-11.43) 02/13/24 04:55 RBC 2.33 10^6/uL (3.85-5.65) L 02/13/24 04:55 Hgb 7.40 g/dL (11.27-16.99) L 02/13/24 04:55 Hct 23.0 % (36-47) L 02/13/24 04:55 MCV 98.7 fl (85-98) H 02/13/24 04:55 MCH 31.8 pg (27-33) 02/13/24 04:55 MCHC 32.2 g/dL (30-55) 02/13/24 04:55 RDW 12.7 % (12.1-15.1) 02/13/24 04:55 Plt Count 164 10^3/cmm (157-399) 02/13/24 04:55 MPV 9.3 fL (7.4-10.4) 02/13/24 04:55 Neut % (Auto) 55.7 % 02/13/24 04:55 Lymph % (Auto) 36.8 % 02/13/24 04:55 [place] % (Auto) 6.6 % 02/13/24 04:55 Eos % (Auto) 0.4 % 02/13/24 04:55 Baso % (Auto) 0.1 % 02/13/24 04:55 Neut # (Auto) 5.02 10^3/uL (1.8-7.7) 02/13/24 04:55 Lymph # (Auto) 3.3 10^3/uL (0.8-4.8) 02/13/24 04:55 [place] # (Auto) 0.6 10^3/uL (0.2-0.9) 02/13/24 04:55 Eos # (Auto) 0.0 10^3/uL (0.0-0.8) 02/13/24 04:55 Baso # (Auto) 0.0 10^3/uL (0.0-0.1) 02/13/24 04:55 Nucleated RBC % (auto) 0 % 02/13/24 04:55 Nucleated RBCs # 0.0 /100WBC 02/13/24 04:55 Blood Type O Positive 02/12/24 13:50 Rho(D) Type Rh positive 02/12/24 13:50 Antibody Screen Negative 02/12/24 13:50 Vitals Last Vital Signs Temp 98.5 F 02/13/24 04:00 Pulse 75 02/13/24 04:00 Resp 18 02/13/24 05:11 BP 128/57 02/13/24 04:00 Pulse Ox 91 02/13/24 05:11 O2 Del Method Room Air 02/12/24 17:26 O2 Flow Rate 2 02/11/24 20:25 Discharge Plan Discharge Patient Disposition: Home Condition: Stable Prescriptions: New oxycodone-acetaminophen 10-325 mg tablet 1 tab PO Q4H PRN (Reason: pain) 7 Days Qty: 42 0RF Continued (DME) Bone Growth Stimulator See Rx Instructions .Route .MEDSUPPLY Qty: 1 0RF Rx Instructions: As directed pantoprazole [Protonix] 40 mg tablet,delayed release (DR/EC) 40 mg PO QPM escitalopram oxalate 20 mg tablet 30 mg PO BEDTIME oxybutynin chloride 5 mg tablet extended release 24hr 5 mg PO QPM Discharge Orders: Discharge Order (Routine); Ordered 02/13/24 Ordered By: Galo Coley Other Ambulatory Orders: DME: Walker (Order) Location: None Selected Ordered By: Galo Coley Discharge Diet: Advance as tolerated Discharge Activity: Limit activity as instructed Patient Instructions: Acute Wound Care (DC), Opioid Safety, Post Anesthesia Care Activity Restrictions/Additional Instructions: Thank you for [facility] for your care! The following is a list of instructions, from your provider, to follow upon your discharge to ensure you have the optimal recovery from your recent injury orsurgery. Follow-up care is a gardner part of your treatment and safety. Be sure to make and go to all appointments, and call your doctor if you are having problems. If you do not already have a follow-up appointment made, call Dr. Coley office in the next 1-3 days to make follow up appointment for 1 weeks at [phone]. It is also a good idea to know your test results and keep a list of the medicines you take. Medications will be prescribed for you at your provider's discretion. These medications are to be used as instructed; if they are taken more often that prescribed they will not be refilled early and in most cases will not be refilled at all. > When a refill is needed,you should contact bronson arcos 2-3 business days before your prescription runs out. Medications will NOT be refilled by range conservationist providers after hours! > Many pain medications contain Tylenol (Acetaminophen). Do not consume more than 4,000 mg of Tylenol per day in total with any combination ofmedications. > Pain medications can cause constipation. Please use an over the counter stool softener as directed, while taking pain medications. Consulty our local pharmacist with questions or recommendations on stool softeners. If constipation persists, contact our office or your primary care provider. > While under our care,you are not to receive pain medications or other controlled substances from any other provider unless our office is notified and approves. Any attempts to do so will result in refusal to prescribe any further pain medications and possible dismissal from our practice. ? Follow-up in 1 week we will change the dressing at that time. ? Showering is permitted, however we ask that you do not take a bath, sit in a whirlpool / Jacuzzi, or go swimming for 1 month. For only the first 2 days after surgery, lt wilt be necessary for you to cover your wound/dressing with plastic and tape to keep it dry. ? Walking is essential for the healing process after surgery. We would like you to slowly advance your walking. This should be done on relatively flat clear ground (inside or out) or can be done on a treadmill. Remember this goal does not have to happen all at once, slowly increase your distance and duration. This can be broken into more more than one walk per day as tolerated. Patients who walk as directed after surgery rarely require Physical Therapy. In the unlikely event this issue arises your provider will direct hospital staff to make the appropriate arrangements. ? No lifting over 5 pounds {a gallon of milk) or bending/twisting until further notice. Each of these activities places an unnecessary amount of stress onto the body and can impede the delicate healing process. > Instead of bending at the waist, keep your back straight and bend at the knees. > Instead of twisting your torso, keep your back straight and turn your entire body with your feet. ? You may sleep in any position which makes you comfortable. Many patients find comfort sleeping in a reclining chair. It is not abnormal to have difficulty sleeping for the first several weeks following your surgery. We recommend trying Benadry! or Tylenol PM as directed to help with your sleeping difficulties. Both medications are over the counter and available withoutprescription. ? NO SMOKING!!! Smoking dramatically increases the probability of developing postoperative wound infections. ? Common complaints after lumbar and/or thoracic spine surgery include, but are not limited to: numbness and/or tingling in the legs, pain around the incision and surrounding tissues, muscle spasms, or stiffness of the middle to low back. Contact our office if these symptoms persist or if an acute change occurs. ? No driving for the first 3-5days, and not while taking narcotics until seen at your follow-up appointment and cleared. There are no restrictions for riding on short trips, however if you take a longer trip, arrangements should be made to make regular stops to get out of the vehicle and stretch . ? Swelling is an unfortunate event that will take place with any surgery and is the primary source of your postoperative discomfort. While walking and regular approved activities helps control inflammation, there are additional steps you can take to minimizeswelling. > Place ice over the surgical site and surrounding tissue for twenty minutes, followed by applying a low/medium heat (heating pad) for an additional twenty minutes every 1-2 hours as needed for painrelief. > You may use of over the counter anti-inflammatory medications (Ibuprofen, Motrin, Aleve, Advil, etc) as directed on the package label. These types of medicines wm significantly reduce the amount of discomfort you experience after surgery from swelling. It should be noted that if you have and allergy to any of these medications, or a history of ulcers or kidney disease you should consult you primary care provider prior to starting these medications. Discharge Attestations Time Spent in Discharge Care*: less than 30 min Quality Metrics Clinical Quality Measures [ No reported AMI, CVA or VTE this stay] Coding Level of Care Code Acute Code for Chg Fwd Diagnoses Status post lumbar spinal fusion Z98.1
== END 2024-02-13 15:25 | disposition home or self-care (01) ==
LOC: MEDSURG 02-12 09:56
PROVIDERS: Admitting Provider Orthopaedic Surgery; PCP Family Medicine; Visit Provider Orthopaedic Surgery
PROC: (CPT 20930; principal; 2024-02-11 12:40)
PROC: (CPT 22612; 2024-02-11 12:40)
DX: M48.062 Spinal stenosis, lumbar region with neurogenic claudication (principal); F32.A Depression, unspecified; I10 Essential (primary) hypertension; G47.30 Sleep apnea, unspecified; E66.01 Morbid (severe) obesity due to excess calories; Z68.42 Body mass index [BMI] 45.0-49.9, adult
CPT/HCPCS: 20930; 20936; 20939; 22633; 22634; 22842; 22853 ×2; 61783; 63052; 63053; 36415; 51702; 72100; 76000; 85014; 85018; 85025; 86850; 86900; 97110; 97116; 97161; 97530; C1713; C9359; G0378; J0131; J0690; J1100; J1885; J2250; J2270; J2371; J2405; J2704; J2710; J3010; J3370; J3490; J7030; J7120; P9045

== ENCOUNTER → 2024-02-19 14:50 | Outpatient (BNVA) | payer OTHER, SELFPAY | PROVIDERS: PCP Family Medicine; Visit Provider Orthopaedic Surgery | DX: Z98.1 Arthrodesis status (principal); M48.062 Spinal stenosis, lumbar region with neurogenic claudication | CPT/HCPCS: 72100 ==

== ENCOUNTER 2024-02-23 12:36 | Observation (INO) | payer OTHER, SELFPAY ==
[2024-02-23] VITALS (24 sets, daily range): BP systolic 96–167; BP diastolic 52–85; PULSE 73–105; RESP 16–27; TEMP 36.1–36.9; O2SAT 90–100; BMI 44.4
[2024-02-23] MEDS: sodium chloride 0.9% 1,000 ML 30 ML IV (10:09)
--- NOTE | 2024-02-23 10:12 | P.ANESASSM_ITS ---
Pre-Anesthetic Assessment Height/Weight: Height 1.5 m Weight 99.79 kg Temp Pulse Resp BP Pulse Ox O2 Del Method 98.1 F 75 18 141/76 98 Room Air 02/23/24 09:49 02/23/24 09:49 02/23/24 09:49 02/23/24 09:49 02/23/24 09:49 02/23/24 09:49 Preop Diagnosis: Loose hardware Operation Date: 02/23/24 11:00 Proposed Procedures p Hardware Removal Back(Not Applicable) - Galo Coley, DO Familial anesthetic complications: None Was Beta Danny taken within 24 hours: N/A Was Clonidine taken within 24 hours: N/A Last intake: Intake Last Liquid Date 02/22/24 Last Liquid Time 21:00 Last Solid Date 02/22/24 Last Solid Time 21:00 Social No alcohol and No tobacco Exam alert, oriented x 3, clear to auscultation bilaterally and regular rate & rhythm Airway Mallampati: Class III Dentition: other (missing molar) Pulmonary Sleep Apnea GI Gastroesophageal Reflux Disease Metabolic Morbid Obesity Anesthetic Plan ASA status: 3 Anesthesia: General Risk of > 500 ml blood loss (7ml/kg in children): No Medications/Allergies Home Medications Medication Instructions Recorded Confirmed Last Taken Type Bone Growth Stimulator #1 ea 02/09/24 02/19/24 Unknown Rx escitalopram oxalate 20 mg tablet 30 mg PO BEDTIME 02/10/24 02/20/24 02/22/24 History oxybutynin chloride 5 mg 5 mg PO QPM 02/10/24 02/20/24 02/22/24 History tablet,extended release 24 hr pantoprazole 40 mg tablet,delayed 40 mg PO QPM 02/10/24 02/20/24 02/22/24 History release (Protonix) Allergies Allergy/AdvReac Type Severity Reaction Status Date / Time heparin Allergy Mild Unknown Verified 02/19/24 14:52 aspirin Allergy ALGY-Hives Verified 02/19/24 14:52 Current Medications Generic Name Dose Route Start Last Admin Trade Name Freq PRN Reason Stop Dose Admin Sodium Chloride 1,000 mls @ 30 mls/hr 02/23/24 09:30 02/23/24 10:09 Sodium Chloride 0.9% IV 02/24/24 09:29 30 mls/hr .Q24H ROQUE Administration PFSH Anesthesia Medical History Depression Psychiatric care Hypertension History of migraine Surgical History History of hysterectomy Family History Other Cancer Denies family history of Diabetes CAD (coronary artery disease) Clotting disorder Dementia Hyperlipidemia Psychiatric illness Chronic kidney disease (CKD) Suicide Anesthesia complication Bleeding disorder Family history of premature coronary artery disease Lung disease Hypertension Stroke Social History Smoking and tobacco/nicotine status: never used tobacco/nicotine Data Anesthesia 02/23/24 10:02 02/23/24 10:02 Cardiac Studies: 2 No Data to Display
[2024-02-23] MEDS: fentaNYL 50 mcg/mL INJ 2mL IVP (10:17)
[2024-02-23 10:19] LABS: Basophils # 0.1 10^3/uL (0.0-0.1); Basophils % 0.7 %; Eosinophils # 0.2 10^3/uL (0.0-0.8); Hematocrit 29.7 % (36-47); Lymphocytes % 26.3 %; Mean Corpuscular Hemoglobin 31.3 pg (27-33); Mean Corpuscular Volume 97.7 fl (85-98); Mean Platelet Volume 8.6 fL (7.4-10.4); Monocytes # 0.4 10^3/uL (0.2-0.9); Monocytes % 5.1 %; Neutrophils # 4.96 10^3/uL (1.8-7.7); Neutrophils % 65.4 %; Nucleated Red Blood Cells % 0 %; Platelet Count 496 10^3/cmm (157-399); Red Blood Count 3.04 10^6/uL (3.85-5.65); Red Cell Distribution Width 13.1 % (12.1-15.1); White Blood Count 7.58 10^3/uL (3.29-11.43)
[2024-02-23 10:35] LABS: Anion Gap 15.7 (5-19); Blood Urea Nitrogen 11 mg/dL (6-20); Calcium 9.1 mg/dL (8.5-10.5); Carbon Dioxide 29 mmol/L (22-29); Chloride 103 mmol/L (98-107); Creatinine Clr Calc Pharmacy 143.0521; Glomerular Filtration Rate 86.9 mL/min (90-130); Glucose 97 mg/dL (65-115); Osmolality Calculated 295 mOsm/kg (285-295); Potassium 4.7 mmol/L (3.5-5.1); Sodium 143 mmol/L (136-145)
--- NOTE | 2024-02-23 10:36 | W.PM.OPSUD ---
Surgery/Procedure H&P Update DATE OF PROCEDURE: February 23, 2024 DATE H&P PERFORMED: 02/19/24 H&P UPDATE INFORMATION: I have reviewed H&P completed within last 30 days, I have examined patient prior to procedure and No changes to prior documentation PREOP DIAGNOSIS: Loose hardware PLANNED PROCEDURE: Operation Date: 02/23/24 11:00 Proposed Procedures p Hardware Removal Back(Not Applicable) - Galo Coley DO
[2024-02-23] MEDS: ceFAZolin 2,000 mg SDV 2000 MG IVP ×3 (11:14→22:48)
[2024-02-23] MEDS: lidocaine-epi 1% 20 mL INJ (11:41)
[2024-02-23] MEDS: vancomycin 1,000 MG SDV 1000 MG XX (12:13)
--- NOTE | 2024-02-23 12:57 | PM.OP ---
Operative Report Date of procedure: February 23, 2024 Pre-op diagnosis: Hardware backing out of lumbar spine Post-op diagnosis: same Procedure done: Revision of L4-5 posterior lumbar interbody cage Surgeon: Galo Coley DO Estimated blood loss (mL): 150 Procedure: Revision of L4-5 posterior lumbar interbody cage Patient went to proceed after going anesthesia was placed in the prone position. All areas impingement well-padded. Patient is prepped in the normal fashion. Skin incisions made using the previous skin incision. Sutures were removed with a tonsil pickup. Once all the sutures removed and then attention was then brought to the thoracolumbar fascia which was split and these 2 sutures were removed. Retractors were placed the previous hardware was identified. The screw caps were removed from the top of the pedicle screws. Then the rods were removed. Attention was then brought to the L4-5 level the Yuri retractor was placed the cage was identified. Cage was removed. The disc base was then evaluated. Saved up to a 13 mm. And then used pituitary. And then the 13 Mittal cage was then repacked and placed inside of the disc space. There was tamped into position. Was able to get it more anterior and rotated around better. This is confirmed under C-arm guidance. Next attention was brought to the L5-S1 level. This cage was identified and then tamped in further as well. Rods were then placed and again the spaces were compressed using the torque or and compressor. All 6 screws were torqued down. Wounds irrigated vancomycin powder was placed deep drain was placed and wound was closed in layered fashion with 0 Vicryl 2-0 Vicryl and Monocryl suture. Sterile dressings applied patient transferred the PACU in stable addition.
--- NOTE | 2024-02-23 13:30 | XR_ITS ---
WS: [id number] Exam: XR lumbar spine 2-3V* [id number] Date/Time of Exam: 02/23/2024 1:30 PM Reason For Exam: or pic, revision of hardware AP and lateral images of the lower lumbar spine are submitted for evaluation. Images were obtained fo r intraoperative purposes.
--- NOTE | 2024-02-23 13:50 | ANE.PACU2 ---
Inpatient post-anesthesia follow up: Airway intact: Yes Vital signs: Temperature 98.1 F Pulse Rate 88 Respiratory Rate 16 Blood Pressure 167/85 Pulse Oximetry 100 Oxygen Delivery Me thod Nasal Cannula Oxygen Flow Rate 3 Fraction of Inspir ed Oxygen Hydration adequate: Yes Nausea and vomiting: No Pain level: 1 Mental status: Baseline
[2024-02-23] MEDS: lactated ringers 1,000 ML 90 ML IV (14:17)
[2024-02-23] MEDS: ketorolac 30 mg/mL INJ IVP (14:17)
[2024-02-23] MEDS: morphine 4 mg/mL SDV 1 mL 2 MG IVP ×4 (14:18→23:01)
[2024-02-23] MEDS: oxyCODONE-APAP 10-325 mg Tablet PO (14:59)
--- NOTE | 2024-02-23 16:35 | PC.NURSE ---
Patient refused to get up with therapy, but did sit up on the side of her bed with no assistance. Patient reports 10/10 pain after given 10mg of oxy and 2mg of morphine. Patient was instructed that she can have more pain meds in four hours. Patient was ok with this. Can feel feet, but no numb.
[2024-02-23] MEDS: docusate sodium 100 mg Capsule PO (18:11)
[2024-02-23] MEDS: pantoprazole DR 40 mg Tablet PO (18:11)
[2024-02-23] MEDS: oxybutynin chloride XL 5 MG TABLET PO (18:11)
[2024-02-23] MEDS: escitalopram 10 mg Tablet 30 MG PO (20:16)
[2024-02-24] VITALS (10 sets, daily range): BP systolic 119–134; BP diastolic 64–76; PULSE 77–88; RESP 16–20; TEMP 36.6–37.3; O2SAT 91–97
[2024-02-24] MEDS: morphine 4 mg/mL SDV 1 mL 2 MG IVP ×3 (01:44→05:46)
[2024-02-24] MEDS: lactated ringers 1,000 ML 90 ML IV (01:46)
[2024-02-24] MEDS: HYDROcodone-acetaminophen 5-325 mg Tablet PO ×3 (02:32→20:26)
[2024-02-24 05:45] LABS: Basophils % 0.2 %; Hematocrit 24.5 % (36-47); Lymphocytes # 1.5 10^3/uL (0.8-4.8); Lymphocytes % 13.1 %; Mean Corpuscular Hemoglobin 29.9 pg (27-33); Mean Corpuscular Volume 96.5 fl (85-98); Mean Platelet Volume 8.5 fL (7.4-10.4); Monocytes # 0.4 10^3/uL (0.2-0.9); Monocytes % 3.3 %; Neutrophils # 9.33 10^3/uL (1.8-7.7); Neutrophils % 82.8 %; Nucleated Red Blood Cells % 0 %; Platelet Count 430 10^3/cmm (157-399); Red Blood Count 2.54 10^6/uL (3.85-5.65); Red Cell Distribution Width 12.6 % (12.1-15.1); White Blood Count 11.26 10^3/uL (3.29-11.43)
[2024-02-24] MEDS: ceFAZolin 2,000 mg SDV 2000 MG IVP (05:46)
[2024-02-24 06:04] LABS: Alanine Aminotransferase 13 U/L (0-33); Albumin Level 3.7 g/dL (3.5-5.2); Alkaline Phosphatase 127 U/L (35-105); Anion Gap 14.5 (5-19); Aspartate Amino Transferase 18 U/L (0-32); Blood Urea Nitrogen 9 mg/dL (6-20); Calcium 8.5 mg/dL (8.5-10.5); Carbon Dioxide 27 mmol/L (22-29); Chloride 102 mmol/L (98-107); Globulin 2.9 g/dL (1.3-4.6); Glomerular Filtration Rate 103.8 mL/min (90-130); Glucose 123 mg/dL (65-115); Osmolality Calculated 288 mOsm/kg (285-295); Potassium 4.5 mmol/L (3.5-5.1); Sodium 139 mmol/L (136-145); Total Bilirubin 0.2 mg/dL (0.15-1.2); Total Protein 6.6 g/dL (6.6-8.7)
--- NOTE | 2024-02-24 06:51 | PC.NURSE ---
patient one day post op, rodriguez catheter discontinued, intact upon removal, patient tolerated well
--- NOTE | 2024-02-24 07:53 | CT_ITS ---
WS: [id number] CT LUMBAR SPINE TECHNIQUE: Noncontrast CT of the lumbar spine with coronal and sagittal reformatted images. CLINICAL INFORMATION: post op COMPARISON: MRI 01/17/2023 DLP: 1093.[address] scans at [facility] use at least one of these dose optimization techniques: automated e xposure control; mA and/or kV adjustment per patient size (includes targeted exams where dose is matc hed to clinical indication); or iterative reconstruction. FINDINGS: Interval postoperative changes pedicle screw fixation L4-S1 with interconnecting rods. Interbody fusi on graft. Associated laminectomy defects. Hardware appears in good position. L1-L2: Normal. L2-L3: No significant disc bulging. Spinal canal and foramen are patent. L3-L4: Minimal annular bulging. Mild facet arthropathy. Spinal canal is patent. Mild RIGHT foraminal narrowing. L4-L5: Postoperative changes pedicle screw fixation with interbody fusion. Laminectomy defects with p ostoperative changes. Images degraded at this level due to beam hardening artifact. Spinal canal and foramina appear patent. L5-S1: Postoperative changes. Laminectomy defects. Spinal canal and foramen appear patent. CT/CT lumbar spine wo con* [id number] IMPRESSION: 1. Interval postoperative changes pedicle screw fixation L4-S1. Hardware appea rs in good position. Interbody fusion graft with laminectomy defects. 2. Spinal canal and foramen appear patent at the fusion levels. 3. Mild RIGHT L3-4 foraminal narrowing.
--- NOTE | 2024-02-24 07:55 | P.PN_ITS ---
Subjective 2 Subjective: Patient was doing well postoperatively she is able to move better. Patient stated the pain was better. However at 230 morning she woke up with extreme pain. Got pain meds and this helped it. At this point patient stated her pain is 9 out of 10. Complaint numbness down her leg. Vitals/I&O/Wt Last Vital Signs Temp 97.8 F 02/24/24 04:00 Pulse 86 02/24/24 04:00 Resp 18 02/24/24 05:46 BP 121/76 02/24/24 04:00 Pulse Ox 91 02/24/24 04:00 O2 Del Method Room Air 02/23/24 17:00 O2 Flow Rate 1 02/23/24 14:56 02/23/24 02/24/24 02/24/24 22:59 06:59 14:59 Intake Total 360 / 1610 1480 / 3090 Output Total 850 / 1045 1350 / 2395 Balance -490 / 565 130 / 695 Weight last 48 hrs Weight 236 lb 3.2 oz Weight 220 lb Weight 220 lb Physical Exam 2 Narrative: Hemovac drain with minimal output. Urinary Catheter Management: Shah: Cath Placed During This Visit: yes Reason for Continuing Indwelling Catheter: Perioperative Use in Selected Surgeries Urinary Catheter Date of Insertion: 02/23/24 Urinary Catheter Time of Insertion: 11:20 Data 02/24/24 05:40 02/24/24 05:40 A&P Assessment and plan (1) Status post lumbar spinal fusion: Will get a CT scan of her lumbar spine to make sure the cages stay in place. DC her Hemovac drain. Get up with physical therapy. Attestations 2 Medical Necessity Statement*: pain control Coding Level of Care Code Acute Code for Chg Fwd Diagnoses Status post lumbar spinal fusion Z98.1
[2024-02-24] MEDS: docusate sodium 100 mg Capsule PO ×2 (08:10→17:34)
[2024-02-24] MEDS: oxyCODONE-APAP 10-325 mg Tablet PO ×2 (08:10→15:29)
--- NOTE | 2024-02-24 10:03 | PC.CHAP ---
Pastoral Care Encounter/Spiritual Assessment Type of Contact [] Declined computerized mill recorder visit [] Patient/Family/Request visit [] Outpatient visit [] Follow-up visit [] Physician referral [] Code/Alert [x] Routine visit [] Staff referral [] Actively dying [] Patient sleeping [] Family support [] [] Out of room [] Palliative care [] [] Receiving care in room [] Pre-surgical visit [] Trauma [] Long length of stay [] ICU visit [] Other: Relational/Emotional Strength [x] Patient feels connected with others/family/visitors/staff [] Distress [] Loneliness/isolation [] Abandonment Spirituality of Patient [x] Person of Ritu [x] Attends Islam of their Ritu [x] Believes in Prayer [x] Reads Bible or Jewish materials [] There are Spiritual issues to be addressed [employer]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 Interventions [x] Prayer [x] Active listening [x] Non-anxious presence [x] Spiritual/emotional support [] Crisis/trauma care [] Spiritual counseling [] Bereavement support [] Provided bereavement packet [] Provided Bible/devotional materials [] Provided toy/stuffed animal, coloring book to patient or family member [] Provided Communion [] Anointing/Herod [] Salvation [x] Completed spiritual assessment [] Other: Impact on Illness or Injury [] Angry [] Fearful [] Anxious [] Often cries [] Exhaustion [] Unable to work [] Unable to attend roman catholic [] Unable to walk/stand [] Unable to read [] Unable to drive [] Unable to eat/drink [] Unable to sleep [] Unable to be with family [] Patient intubated [] Other: Summary Time spent with patient 5 min
[2024-02-24] MEDS: pantoprazole DR 40 mg Tablet PO (17:34)
[2024-02-24] MEDS: oxybutynin chloride XL 5 MG TABLET PO (17:34)
[2024-02-24] MEDS: escitalopram 10 mg Tablet 30 MG PO (20:27)
[2024-02-24] MEDS: ketorolac 30 mg/mL INJ IVP (20:30)
[2024-02-25] VITALS: BP 113/67; PULSE 72; RESP 18; TEMP 36.7; O2SAT 96
[2024-02-25] MEDS: lactated ringers 1,000 ML 90 ML IV (00:11)
[2024-02-25] MEDS: HYDROcodone-acetaminophen 5-325 mg Tablet PO ×2 (02:11→08:15)
[2024-02-25 04:00] VITALS: BP 122/50; PULSE 85; RESP 18; TEMP 36.8; O2SAT 94
[2024-02-25 05:40] VITALS: RESP 16
[2024-02-25] MEDS: oxyCODONE-APAP 10-325 mg Tablet PO (05:40)
[2024-02-25 07:46] VITALS: BP 138/72; PULSE 71; RESP 17; TEMP 36.8; O2SAT 95
[2024-02-25] MEDS: docusate sodium 100 mg Capsule PO (08:16)
--- NOTE | 2024-02-25 09:00 | PM.DCS ---
Discharge Providers Date of Admission: 02/23/24 12:36 Date of Discharge: February 25, 2024 Attending Provider at Admission: Galo Coley DO Attending Provider at Discharge: Galo Coley DO Primary Care Provider: Indra Hines Diagnoses at Discharge Discharge Diagnosis (1) Status post lumbar spinal fusion: Status: Acute Reason for Visit Reason for Visit: M48.062 Physical Exam Narrative: Patient is doing much better is complaining of some residual numbness on her feet otherwise doing well. Urinary Catheter Management: Shah: Cath Placed During This Visit: yes Reason for Continuing Indwelling Catheter: Perioperative Use in Selected Surgeries Urinary Catheter Date of Insertion: 02/23/24 Urinary Catheter Time of Insertion: 11:20 Discharge Data Studies Completed and Pending Completed Studies During Hospitalization Category Date Time Status CT lumbar spine wo con* [id number] Routine Cat Scan 02/24/24 07:53 Completed XR lumbar spine 2-3V* [id number] Routine Exams 02/23/24 13:30 Completed Radiology Impressions Lumbar Spine CT 02/24/24 07:53 IMPRESSION: 1. Interval postoperative changes pedicle screw fixation L4-S1. Hardware appears in good position. Interbody fusion graft with laminectomy defects. 2. Spinal canal and foramen appear patent at the fusion levels. 3. Mild RIGHT L3-4 foraminal narrowing. Laboratory Results WBC 11.26 10^3/uL (3.29-11.43) 02/24/24 05:40 RBC 2.54 10^6/uL (3.85-5.65) L 02/24/24 05:40 Hgb 7.60 g/dL (11.27-16.99) L 02/24/24 05:40 Hct 24.5 % (36-47) L 02/24/24 05:40 MCV 96.5 fl (85-98) 02/24/24 05:40 MCH 29.9 pg (27-33) 02/24/24 05:40 MCHC 31.0 g/dL (30-55) 02/24/24 05:40 RDW 12.6 % (12.1-15.1) 02/24/24 05:40 Plt Count 430 10^3/cmm (157-399) H 02/24/24 05:40 MPV 8.5 fL (7.4-10.4) 02/24/24 05:40 Neut % (Auto) 82.8 % 02/24/24 05:40 Lymph % (Auto) 13.1 % 02/24/24 05:40 Edmonson % (Auto) 3.3 % 02/24/24 05:40 Eos % (Auto) 0.0 % 02/24/24 05:40 Baso % (Auto) 0.2 % 02/24/24 05:40 Neut # (Auto) 9.33 10^3/uL (1.8-7.7) H 02/24/24 05:40 Lymph # (Auto) 1.5 10^3/uL (0.8-4.8) 02/24/24 05:40 Edmonson # (Auto) 0.4 10^3/uL (0.2-0.9) 02/24/24 05:40 Eos # (Auto) 0.0 10^3/uL (0.0-0.8) 02/24/24 05:40 Baso # (Auto) 0.0 10^3/uL (0.0-0.1) 02/24/24 05:40 Nucleated RBC % (auto) 0 % 02/24/24 05:40 Nucleated RBCs # 0.0 /100WBC 02/24/24 05:40 Sodium 139 mmol/L (136-145) 02/24/24 05:40 Potassium 4.5 mmol/L (3.5-5.1) 02/24/24 05:40 Chloride 102 mmol/L (98-107) 02/24/24 05:40 Carbon Dioxide 27 mmol/L (22-29) 02/24/24 05:40 Anion Gap 14.5 (5-19) 02/24/24 05:40 BUN 9 mg/dL (6-20) 02/24/24 05:40 Creatinine 0.6 mg/dL (0.5-0.9) 02/24/24 05:40 GFR Calculation 103.8 mL/min (90-130) 02/24/24 05:40 Glucose 123 mg/dL (65-115) H 02/24/24 05:40 Calculated Osmolality 288 mOsm/kg (285-295) 02/24/24 05:40 Calcium 8.5 mg/dL (8.5-10.5) 02/24/24 05:40 Total Bilirubin 0.2 mg/dL (0.15-1.2) 02/24/24 05:40 AST 18 U/L (0-32) 02/24/24 05:40 ALT 13 U/L (0-33) 02/24/24 05:40 Alkaline Phosphatase 127 U/L (35-105) H 02/24/24 05:40 Total Protein 6.6 g/dL (6.6-8.7) 02/24/24 05:40 Albumin 3.7 g/dL (3.5-5.2) 02/24/24 05:40 Globulin 2.9 g/dL (1.3-4.6) 02/24/24 05:40 Blood Type O Positive 02/23/24 10:02 Rho(D) Type Rh positive 02/23/24 10:02 Antibody Screen Negative 02/23/24 10:02 Vitals Last Vital Signs Temp 98.2 F 02/25/24 07:46 Pulse 71 02/25/24 07:46 Resp 17 02/25/24 07:46 BP 138/72 02/25/24 07:46 Pulse Ox 95 02/25/24 07:46 O2 Del Method Room Air 02/25/24 07:46 O2 Flow Rate 1 02/23/24 14:56 Discharge Plan Discharge Patient Disposition: Home Condition: Stable Prescriptions: New oxycodone 10 mg tablet 10 mg PO Q4H PRN (Reason: pain) 7 Days Qty: 40 0RF Continued (DME) Bone Growth Stimulator See Rx Instructions .Route .MEDSUPPLY Qty: 1 0RF Rx Instructions: As directed pantoprazole [Protonix] 40 mg tablet,delayed release (DR/EC) 40 mg PO QPM escitalopram oxalate 20 mg tablet 30 mg PO BEDTIME oxybutynin chloride 5 mg tablet extended release 24hr 5 mg PO QPM Discharge Orders: Discharge Order (Routine); Ordered 02/25/24 Ordered By: Galo Coley Discharge Diet: Advance as tolerated Discharge Activity: Limit activity as instructed Patient Instructions: Acute Wound Care (DC), Opioid Safety, Post Anesthesia Care Activity Restrictions/Additional Instructions: Thank you for [facility] for your care! The following is a list of instructions, from your provider, to follow upon your discharge to ensure you have the optimal recovery from your recent injury orsurgery. Follow-up care is a gardner part of your treatment and safety. Be sure to make and go to all appointments, and call your doctor if you are having problems. If you do not already have a follow-up appointment made, call Dr. Coley office in the next 1-3 days to make follow up appointment for 2 weeks at [phone]. It is also a good idea to know your test results and keep a list of the medicines you take. Medications will be prescribed for you at your provider's discretion. These medications are to be used as instructed; if they are taken more often that prescribed they will not be refilled early and in most cases will not be refilled at all. > When a refill is needed,you should contact [facility] 2-3 business days before your prescription runs out. Medications will NOT be refilled by regional manager providers after hours! > Many pain medications contain Tylenol (Acetaminophen). Do not consume more than 4,000 mg of Tylenol per day in total with any combination ofmedications. > Pain medications can cause constipation. Please use an over the counter stool softener as directed, while taking pain medications. Consulty our local pharmacist with questions or recommendations on stool softeners. If constipation persists, contact our office or your primary care provider. > While under our care,you are not to receive pain medications or other controlled substances from any other provider unless our office is notified and approves. Any attempts to do so will result in refusal to prescribe any further pain medications and possible dismissal from our practice. ? Will change dressing in 1 week in the clinic. ? Walking is essential for the healing process after surgery. We would like you to slowly advance your walking. This should be done on relatively flat clear ground (inside or out) or can be done on a treadmill. Remember this goal does not have to happen all at once, slowly increase your distance and duration. This can be broken into more more than one walk per day as tolerated. Patients who walk as directed after surgery rarely require Physical Therapy. In the unlikely event this issue arises your provider will direct hospital staff to make the appropriate arrangements. ? No lifting over 5 pounds {a gallon of milk) or bending/twisting until further notice. Each of these activities places an unnecessary amount of stress onto the body and can impede the delicate healing process. > Instead of bending at the waist, keep your back straight and bend at the knees. > Instead of twisting your torso, keep your back straight and turn your entire body with your feet. ? You may sleep in any position which makes you comfortable. Many patients find comfort sleeping in a reclining chair. It is not abnormal to have difficulty sleeping for the first several weeks following your surgery. We recommend trying Benadry! or Tylenol PM as directed to help with your sleeping difficulties. Both medications are over the counter and available withoutprescription. ? NO SMOKING!!! Smoking dramatically increases the probability of developing postoperative wound infections. ? Common complaints after lumbar and/or thoracic spine surgery include, but are not limited to: numbness and/or tingling in the legs, pain around the incision and surrounding tissues, muscle spasms, or stiffness of the middle to low back. Contact our office if these symptoms persist or if an acute change occurs. ? No driving for the first 3-5days, and not while taking narcotics until seen at your follow-up appointment and cleared. There are no restrictions for riding on short trips, however if you take a longer trip, arrangements should be made to make regular stops to get out of the vehicle and stretch . ? Swelling is an unfortunate event that will take place with any surgery and is the primary source of your postoperative discomfort. While walking and regular approved activities helps control inflammation, there are additional steps you can take to minimizeswelling. > Place ice over the surgical site and surrounding tissue for twenty minutes, followed by applying a low/medium heat (heating pad) for an additional twenty minutes every 1-2 hours as needed for painrelief. > You may use of over the counter anti-inflammatory medications (Ibuprofen, Motrin, Aleve, Advil, etc) as directed on the package label. These types of medicines wm significantly reduce the amount of discomfort you experience after surgery from swelling. It should be noted that if you have and allergy to any of these medications, or a history of ulcers or kidney disease you should consult you primary care provider prior to starting these medications. Discharge Attestations Time Spent in Discharge Care*: less than 30 min Quality Metrics Clinical Quality Measures [ No reported AMI, CVA or VTE this stay] Coding Level of Care Code Acute Code for Chg Fwd Diagnoses Status post lumbar spinal fusion Z98.1
[2024-02-25 11:39] VITALS: BP 138/72; PULSE 71; RESP 17; TEMP 36.8; O2SAT 95
== END 2024-02-25 11:00 | disposition home or self-care (01) ==
LOC: MEDSURG 12:37
PROVIDERS: Anesthesiology; Admitting Provider Orthopaedic Surgery; PCP Family Medicine; Visit Provider Orthopaedic Surgery
PROC: (CPT 22630; principal; 2024-02-23 10:40)
DX: T84.216A Breakdown (mechanical) of internal fixation device of vertebrae, initial encounter (principal); T84.84XA Pain due to internal orthopedic prosthetic devices, implants and grafts, initial encounter; Y79.2 Prosthetic and other implants, materials and accessory orthopedic devices associated with adverse incidents; G47.30 Sleep apnea, unspecified; K21.9 Gastro-esophageal reflux disease without esophagitis; E66.01 Morbid (severe) obesity due to excess calories; Z68.42 Body mass index [BMI] 45.0-49.9, adult; F32.A Depression, unspecified; I10 Essential (primary) hypertension
CPT/HCPCS: 22630; 22830; 22849; 22853; 36415; 51702; 72100; 72131; 76000; 80048; 80053; 85025; 86850; 86900; 97110; 97116; 97161; G0378; J0330; J0690; J1100; J1171; J1885; J2250; J2270; J2405; J2704; J3010; J3370; J3490; J7030; J7120

== ENCOUNTER 2024-03-08 15:56 | Emergency (ER) | payer OTHER, SELFPAY ==
[2024-03-08] VITALS (9 sets, daily range): BP systolic 127–153; BP diastolic 60–83; PULSE 80–103; RESP 16–18; TEMP 39.2; O2SAT 92–97
--- NOTE | 2024-03-08 16:23 | ED_ITS ---
Documented by User: Jules Ramos DO 03/09/24 13:07 HPI - Back Pain/Injury 2 General: Chief Complaint: Back Pain/Injury Stated Complaint: post op back/leg pain Time Seen by Provider: 03/08/24 16:02 History of Present Illness: 54-year-old female presents to the emerg ency room with worsening back pain radiating into the left leg. She complains of worsening pain and weakness. She states she had surgery on her back on 02/11/2024 and returned to the OR on 02/22 due to some difficulty with hardware previously implemented. Never really had improvement and now has had some worsening in addition to this she now has a temp of 102.5. She denies any difficulty with urination or fecal incontinence. She is complaining of loss of function with her left leg. Associated symptoms: Reports chills and fever(s); Deny abdominal pain, dysuria or urinary urgency Related Data Home Medications Medication Instructions Recorded Confirmed escitalopram oxalate 20 mg tablet 30 mg PO BEDTIME 02/10/24 03/09/24 oxybutynin chloride 5 mg 5 mg PO QPM 02/10/24 03/09/24 tablet,extended release 24 hr pantoprazole 40 mg tablet,delayed 40 mg PO QPM 02/10/24 03/09/24 release (Protonix) Previous Rx's Medication Instructions Recorded Bone Growth Stimulator #1 ea 02/09/24 oxycodone 10 mg tablet 10 mg PO Q4H PRN pain 7 days #32 03/09/24 tabs Allergies Allergy/AdvReac Type Severity Reaction Status Date / Time heparin Allergy Mild Unknown Verified 03/09/24 09:19 aspirin Allergy ALGY-Hives Verified 03/09/24 09:19 Review of Systems 2 Const: Reports: fever(s) and chills Card: Denies: chest pain Resp: Denies: dyspnea GI: Denies: abdominal pain : Denies: dysuria, urinary frequency or urinary urgency Musc: Reports: back pain and extremity pain; Denies: neck pain Skin/Breast: Denies: rash PFSH ED 2 PFSH: Medical History Depression Psychiatric care Hypertension History of migraine Surgical History History of hysterectomy Family History Other Cancer Denies family history of Diabetes CAD (coronary artery disease) Clotting disorder Dementia Hyperlipidemia Psychiatric illness Chronic kidney disease (CKD) Suicide Anesthesia complication Bleeding disorder Family history of premature coronary artery disease Lung disease Hypertension Stroke Social History Smoking and tobacco/nicotine status: unknown if used tobacco/nicotine Physical Exam 2 Const: GENERAL APPEARANCE: cooperative ORIENTATION/CONSCIOUSNESS: Yes awake, Yes oriented to person, Yes oriented to place and Yes oriented to time HENMT: COMMON NORMALS: normocephalic, atraumatic and hearing grossly normal bilaterally HEAD & SCALP: normocephalic and atraumatic Resp: COMMON NORMALS: normal respiratory effort, No retractions, No use of accessory muscles and clear to auscultation bilaterally AUSCULTATION: clear to auscultation bilaterally Cardio: COMMON NORMALS: regular rate, regular rhythm and No murmurs present (Cardio) RATE: regular rate RHYTHM: regular rhythm GI: COMMON NORMALS: Soft to palpation and No hepatosplenomegaly present A USCULTATION: Yes normoactive bowel sounds PALPATION: Yes Soft to palpation, No Tenderness to palpation present (GI), No Guarding due to palpation present (GI) and Yes No hepatosplenomegaly present Extremity: COMMON NORMALS: normal to inspection, capillary refill normal, no clubbing, cyanosis or edema, no calf tenderness and no pedal edema Neuro: SENSORIUM/ORIENTATION: Yes oriented to person, Yes oriented to place and Yes oriented to time OTHER: Deep tendon reflex patellar tendon +2 for both the left and the right. Sensation lower extremities are normal. Babinski is downgoing bilaterally. Sensation lower extremities are normal. Plantarflexion 5/5 bilaterally, dorsiflexion 2/5 on the left foot, 5/5 on the right foot. Babinski downgoing bilaterally Skin: COMMON NORMALS: no rashes or lesions noted GENERAL SKIN EXAM: no rashes or lesions noted OTHER: Examination of the incision there is no adhesions there are some areas of hypertrophy of the skin where the skin overlapped scar. There is no redness no induration no purulent drainage. In the superior aspect with palpation I could extrude a small amount of serous fluid. Course 2 Vital Signs: Vital signs: Vital Signs Temperature 102.5 F H 03/08/24 15:59 Pulse Rate 87 03/08/24 21:21 Respiratory Rate 17 03/08/24 19:17 Blood Pressure 127/61 03/08/24 21:21 Pulse Oximetry 92 03/08/24 21:21 Oxygen Delivery Me thod Room Air 03/08/24 19:17 MDM - Back Pain/Injury Medical Decision Making CT read is pending. Recommend reviewing with Dr. Coley once completed. Care signed out to Dr. Duckworth at change of shift. See final notes for diagnosis and disposition. Care transferred over to myself at shift change, lab work was reviewed as well as lumbar spine CT which showed a posterior fluid collection at L3-4 they cannot rule out an abscess, white count was 12.3, temperature upon arrival was 102.5, blood cultures were obtained, sed rate was elevated at 108.6, these results were discussed with Dr. Chang who says patient has an appointment with him for postsurgical follow-up in the morning. These results were discussed with the patient. Patient then proceeded to say she cannot move her left leg. However upon further physical exam she was able to move it. Patient will be discharged home and instructed to follow-up with Dr. Coley for her appointment in the morning. Reviewed the chart this morning reviewed discharge instructions. I confirmed with Dr. Coley's office that she did have a follow-up appointment contacted Dr. Chang and discussed the patient. Were still waiting on any culture results are shown is pending. Dr. Coley is following up the patient with an MRI and short- term follow-up after the MRI is completed. Labs 03/08/24 16:38 03/08/24 16:38 Radiology Impressions Lumbar Spine CT 03/08/24 17:55 IMPRESSION: Posterior fluid collection at the L3-L4 level associated with the posterior surgical incision. This could represent abscess. I cannot totally exclude CSF leak. Laboratory Results WBC 12.36 10^3/uL (3.29-11.43) H 03/08/24 16:38 RBC 3.12 10^6/uL (3.85-5.65) L 03/08/24 16:38 Hgb 9.00 g/dL (11.27-16.99) L 03/08/24 16:38 Hct 29.4 % (36-47) L 03/08/24 16:38 MCV 94.2 fl (85-98) 03/08/24 16:38 MCH 28.8 pg (27-33) 03/08/24 16:38 MCHC 30.6 g/dL (30-55) 03/08/24 16:38 RDW 13.1 % (12.1-15.1) 03/08/24 16:38 Plt Count 351 10^3/cmm (157-399) 03/08/24 16:38 MPV 8.7 fL (7.4-10.4) 03/08/24 16:38 Neut % (Auto) 76.8 % 03/08/24 16:38 Lymph % (Auto) 15.0 % 03/08/24 16:38 [place] % (Auto) 7.5 % 03/08/24 16:38 Eos % (Auto) 0.1 % 03/08/24 16:38 Baso % (Auto) 0.3 % 03/08/24 16:38 Neut # (Auto) 9.49 10^3/uL (1.8-7.7) H 03/08/24 16:38 Lymph # (Auto) 1.9 10^3/uL (0.8-4.8) 03/08/24 16:38 [place] # (Auto) 0.9 10^3/uL (0.2-0.9) 03/08/24 16:38 Eos # (Auto) 0.0 10^3/uL (0.0-0.8) 03/08/24 16:38 Baso # (Auto) 0.0 10^3/uL (0.0-0.1) 03/08/24 16:38 Nucleated RBC % (auto) 0 % 03/08/24 16:38 Nucleated RBCs # 0.0 /100WBC 03/08/24 16:38 ESR 26 mm/hr (0-15) H 03/08/24 16:38 Sodium 139 mmol/L (136-145) 03/08/24 16:38 Potassium 4.1 mmol/L (3.5-5.1) 03/08/24 16:38 Chloride 100 mmol/L (98-107) 03/08/24 16:38 Carbon Dioxide 27 mmol/L (22-29) 03/08/24 16:38 Anion Gap 16.1 (5-19) 03/08/24 16:38 BUN 11 mg/dL (6-20) 03/08/24 16:38 Creatinine 0.6 mg/dL (0.5-0.9) 03/08/24 16:38 GFR Calculation 103.4 mL/min (90-130) 03/08/24 16:38 Glucose 110 mg/dL (65-115) 03/08/24 16:38 Calculated Osmolality 288 mOsm/kg (285-295) 03/08/24 16:38 Lactic Acid 1.4 mmol/L (0.5-2.2) 03/08/24 16:38 Calcium 9.1 mg/dL (8.5-10.5) 03/08/24 16:38 Total Bilirubin 0.5 mg/dL (0.15-1.2) 03/08/24 16:38 AST 12 U/L (0-32) 03/08/24 16:38 ALT 12 U/L (0-33) 03/08/24 16:38 Alkaline Phosphatase 171 U/L (35-105) H 03/08/24 16:38 C-Reactive Protein 108.6 mg/L (0.0-4.9) H 03/08/24 16:38 Total Protein 7.0 g/dL (6.6-8.7) 03/08/24 16:38 Albumin 4.3 g/dL (3.5-5.2) 03/08/24 16:38 Globulin 2.7 g/dL (1.3-4.6) 03/08/24 16:38 Coronavirus (PCR) Negative (Negative) 03/08/24 17:33 Influenza A (PCR) Negative (Negative) 03/08/24 17:33 Influenza Type B (PCR) Negative (Negative) 03/08/24 17:33 RSV (PCR) Negative (Negative) 03/08/24 17:33 Discharge Plan Discharge Patient Disposition: Home Clinical Impression: Post-operative pain, Low back pain, Abnormal CT scan, lumbar spine Condition: Stable Prescriptions: No Action oxycodone 10 mg tablet 10 mg PO Q4H PRN (Reason: pain) 7 Days Qty: 32 0RF (DME) Bone Growth Stimulator See Rx Instructions .Route .MEDSUPPLY Qty: 1 0RF Rx Instructions: As directed pantoprazole [Protonix] 40 mg tablet,delayed release (DR/EC) 40 mg PO QPM escitalopram oxalate 20 mg tablet 30 mg PO BEDTIME oxybutynin chloride 5 mg tablet extended release 24hr 5 mg PO QPM Discharge Orders: Discharge ED (Routine); Ordered 03/08/24 Ordered By: Abhishek Duckworth Referrals: Indra Hines [Primary Care Provider] - 1 week Patient Instructions: Opioid Safety, Pain Management Activity Restrictions/Additional Instructions: Your evaluation ER included lab work, CT scan of your lumbar spine which showed you may have a fluid collection near the surgical incision site. Your white count was fairly normal at 12.3, your results was discussed with Dr. Coley who instructed us to discharge him and have you follow-up with him at your normal appointment in the morning or he will decide further management. 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 [employer] Documented by User: Abhishek Duckworth DO 03/09/24 01:02 HPI - Back Pain/Injury 2 General: Chief Complaint: Back Pain/Injury Stated Complaint: post op back/leg pain Time Seen by Provider: 03/08/24 16:02 Related Data Home Medications Medication Instructions Recorded Confirmed escitalopram oxalate 20 mg tablet 30 mg PO BEDTIME 02/10/24 03/09/24 oxybutynin chloride 5 mg 5 mg PO QPM 02/10/24 03/09/24 tablet,extended release 24 hr pantoprazole 40 mg tablet,delayed 40 mg PO QPM 02/10/24 03/09/24 release (Protonix) Previous Rx's Medication Instructions Recorded Bone Growth Stimulator #1 ea 02/09/24 oxycodone 10 mg tablet 10 mg PO Q4H PRN pain 7 days #32 03/09/24 tabs Allergies Allergy/AdvReac Type Severity Reaction Status Date / Time heparin Allergy Mild Unknown Verified 03/09/24 09:19 aspirin Allergy ALGY-Hives Verified 03/09/24 09:19 PFS ED 2 PFSH: Medical History Depression Psychiatric care Hypertension History of migraine Surgical History History of hysterectomy Family History Other Cancer Denies family history of Diabetes CAD (coronary artery disease) Clotting disorder Dementia Hyperlipidemia Psychiatric illness Chronic kidney disease (CKD) Suicide Anesthesia complication Bleeding disorder Family history of premature coronary artery disease Lung disease Hypertension Stroke Social History Smoking and tobacco/nicotine status: unknown if used tobacco/nicotine Course 2 Vital Signs: Vital signs: Vital Signs Temperature 102.5 F H 03/08/24 15:59 Pulse Rate 87 03/08/24 21:21 Respiratory Rate 17 03/08/24 19:17 Blood Pressure 127/61 03/08/24 21:21 Pulse Oximetry 92 03/08/24 21:21 Oxygen Delivery Me thod Room Air 03/08/24 19:17 MDM - Back Pain/Injury Medical Decision Making Care transferred over to myself at shift change, lab work was reviewed as well as lumbar spine CT which showed a posterior fluid collection at L3-4 they cannot rule out an abscess, white count was 12.3, temperature upon arrival was 102.5, blood cultures were obtained, sed rate was elevated at 108.6, these results were discussed with Dr. Chang who says patient has an appointment with him for postsurgical follow-up in the morning. These results were discussed with the patient. Patient then proceeded to say she cannot move her left leg. However upon further physical exam she was able to move it. Patient will be discharged home and instructed to follow-up with Dr. Coley for her appointment in the morning. Labs 03/08/24 16:38 03/08/24 16:38 Radiology Impressions Lumbar Spine CT 03/08/24 17:55 IMPRESSION: Posterior fluid collection at the L3-L4 level associated with the posterior surgical incision. This could represent abscess. I cannot totally exclude CSF leak. Laboratory Results WBC 12.36 10^3/uL (3.29-11.43) H 03/08/24 16:38 RBC 3.12 10^6/uL (3.85-5.65) L 03/08/24 16:38 Hgb 9.00 g/dL (11.27-16.99) L 03/08/24 16:38 Hct 29.4 % (36-47) L 03/08/24 16:38 MCV 94.2 fl (85-98) 03/08/24 16:38 MCH 28.8 pg (27-33) 03/08/24 16:38 MCHC 30.6 g/dL (30-55) 03/08/24 16:38 RDW 13.1 % (12.1-15.1) 03/08/24 16:38 Plt Count 351 10^3/cmm (157-399) 03/08/24 16:38 MPV 8.7 fL (7.4-10.4) 03/08/24 16:38 Neut % (Auto) 76.8 % 03/08/24 16:38 Lymph % (Auto) 15.0 % 03/08/24 16:38 [place] % (Auto) 7.5 % 03/08/24 16:38 Eos % (Auto) 0.1 % 03/08/24 16:38 Baso % (Auto) 0.3 % 03/08/24 16:38 Neut # (Auto) 9.49 10^3/uL (1.8-7.7) H 03/08/24 16:38 Lymph # (Auto) 1.9 10^3/uL (0.8-4.8) 03/08/24 16:38 [place] # (Auto) 0.9 10^3/uL (0.2-0.9) 03/08/24 16:38 Eos # (Auto) 0.0 10^3/uL (0.0-0.8) 03/08/24 16:38 Baso # (Auto) 0.0 10^3/uL (0.0-0.1) 03/08/24 16:38 Nucleated RBC % (auto) 0 % 03/08/24 16: Nucleated RBCs # 0.0 /100WBC 03/08/24 16:38 ESR 26 mm/hr (0-15) H 03/08/24 16:38 Sodium 139 mmol/L (136-145) 03/08/24 16:38 Potassium 4.1 mmol/L (3.5-5.1) 03/08/24 16:38 Chloride 100 mmol/L (98-107) 03/08/24 16:38 Carbon Dioxide 27 mmol/L (22-29) 03/08/24 16:38 Anion Gap 16.1 (5-19) 03/08/24 16:38 BUN 11 mg/dL (6-20) 03/08/24 16:38 Creatinine 0.6 mg/dL (0.5-0.9) 03/08/24 16:38 GFR Calculation 103.4 mL/min (90-130) 03/08/24 16:38 Glucose 110 mg/dL (65-115) 03/08/24 16:38 Calculated Osmolality 288 mOsm/kg (285-295) 03/08/24 16:38 Lactic Acid 1.4 mmol/L (0.5-2.2) 03/08/24 16:38 Calcium 9.1 mg/dL (8.5-10.5) 03/08/24 16:38 Total Bilirubin 0.5 mg/dL (0.15-1.2) 03/08/24 16:38 AST 12 U/L (0-32) 03/08/24 16:38 ALT 12 U/L (0-33) 03/08/24 16:38 Alkaline Phosphatase 171 U/L (35-105) H 03/08/24 16:38 C-Reactive Protein 108.6 mg/L (0.0-4.9) H 03/08/24 16:38 Total Protein 7.0 g/dL (6.6-8.7) 03/08/24 16:38 Albumin 4.3 g/dL (3.5-5.2) 03/08/24 16:38 Globulin 2.7 g/dL (1.3-4.6) 03/08/24 16:38 Coronavirus (PCR) Negative (Negative) 03/08/24 17:33 Influenza A (PCR) Negative (Negative) 03/08/24 17:33 Influenza Type B (PCR) Negative (Negative) 03/08/24 17:33 RSV (PCR) Negative (Negative) 03/08/24 17:33 All radiology interpretation(s) finalized by discharge Discharge Plan Discharge Patient Disposition: Home Clinical Impression: Post-operative pain, Low back pain, Abnormal CT scan, lumbar spine Condition: Stable Prescriptions: No Action oxycodone 10 mg tablet 10 mg PO Q4H PRN (Reason: pain) 7 Days Qty: 32 0RF (DME) Bone Growth Stimulator See Rx Instructions .Route .MEDSUPPLY Qty: 1 0RF Rx Instructions: As directed pantoprazole [Protonix] 40 mg tablet,delayed release (DR/EC) 40 mg PO QPM escitalopram oxalate 20 mg tablet 30 mg PO BEDTIME oxybutynin chloride 5 mg tablet extended release 24hr 5 mg PO QPM Discharge Orders: Discharge ED (Routine); Ordered 03/08/24 Ordered By: Abhishek Duckworth Referrals: Indra Hines [Primary Care Provider] - 1 week Patient Instructions: Opioid Safety, Pain Management Activity Restrictions/Additional Instructions: Your evaluation ER included lab work, CT scan of your lumbar spine which showed you may have a fluid collection near the surgical incision site. Your white count was fairly normal at 12.3, your results was discussed with Dr. Coley who instructed us to discharge him and have you follow-up with him at your normal appointment in the morning or he will decide further management. 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
[2024-03-08 16:54] LABS: Basophils % 0.3 %; Eosinophils % 0.1 %; Hematocrit 29.4 % (36-47); Lymphocytes # 1.9 10^3/uL (0.8-4.8); Mean Corpuscular HGB Conc 30.6 g/dL (30-55); Mean Corpuscular Hemoglobin 28.8 pg (27-33); Mean Corpuscular Volume 94.2 fl (85-98); Mean Platelet Volume 8.7 fL (7.4-10.4); Monocytes # 0.9 10^3/uL (0.2-0.9); Monocytes % 7.5 %; Neutrophils # 9.49 10^3/uL (1.8-7.7); Neutrophils % 76.8 %; Nucleated Red Blood Cells % 0 %; Platelet Count 351 10^3/cmm (157-399); Red Blood Count 3.12 10^6/uL (3.85-5.65); Red Cell Distribution Width 13.1 % (12.1-15.1); White Blood Count 12.36 10^3/uL (3.29-11.43)
[2024-03-08 16:56] LABS: Erythrocyte Sedimentation Rate 26 mm/hr (0-15)
[2024-03-08 17:11] LABS: Alanine Aminotransferase 12 U/L (0-33); Albumin Level 4.3 g/dL (3.5-5.2); Alkaline Phosphatase 171 U/L (35-105); Anion Gap 16.1 (5-19); Aspartate Amino Transferase 12 U/L (0-32); Blood Urea Nitrogen 11 mg/dL (6-20); C Reactive Protein 108.6 mg/L (0.0-4.9); Calcium 9.1 mg/dL (8.5-10.5); Carbon Dioxide 27 mmol/L (22-29); Chloride 100 mmol/L (98-107); Creatinine Clr Calc Pharmacy 164.9307; Globulin 2.7 g/dL (1.3-4.6); Glomerular Filtration Rate 103.4 mL/min (90-130); Glucose 110 mg/dL (65-115); Osmolality Calculated 288 mOsm/kg (285-295); Potassium 4.1 mmol/L (3.5-5.1); Sodium 139 mmol/L (136-145); Total Bilirubin 0.5 mg/dL (0.15-1.2)
[2024-03-08 17:12] LABS: Lactic Sepsis W/Reflex 1.4 mmol/L (0.5-2.2)
--- NOTE | 2024-03-08 17:55 | CTR_ITS ---
PROCEDURE INFORMATION: Exam: CT Lumbar Spine Without and With Contrast Exam date and time: 03/08/2024 6:52 PM Age: 54 years old Clinical indication: Low back pain; Prior surgery; Surgery date: <1 month; Surgery type: Lspine x2 in feb 2024 TECHNIQUE: Imaging protocol: Computed tomography of the lumbar spine without and with contrast. Radiation optimization: All CT scans at this facility use at least one of these dose optimization techniques: automated exposure control; mA and/or kV adjustment per patient size (includes targeted exams where dose is matched to clinical indication); or iterative reconstruction. Contrast material: OMNIPAQUE 350; Contrast volume: 100 ml; Contrast route: INTRAVENOUS (IV); COMPARISON: CT lumbar spine wo con* [id number] 02/24/2024 12:28 PM FINDINGS: Bones/joints: There is evidence of previous laminectomy and fusion surgery from L4-S1. There is a fluid collection surrounding the posterior elements at the L3-L4 level and this collection extends posteriorly through the subcutaneous fat. The main portion of the collection measures 5.4 cm in transverse diameter. The lower extent of the collection cannot be clearly defined due to metal artifact. I see no definite fluid collection within the spinal canal. Soft tissues: See Bones/joints finding. CT/CT lumbar spine wo/w con [id number] IMPRESSION: Posterior fluid collection at the L3-L4 level associated with the posterior surgical incision. This could represent abscess. I cannot totally exclude CSF leak.
[2024-03-08] MEDS: iohexol 350 mg/mL 500 mL Btl (per mL) IV (18:04)
[2024-03-08] MEDS: acetaminophen 325 mg Tablet 650 MG PO (18:13)
[2024-03-08 18:14] LABS: Covid PCR NEGATIVE (Negative); Influenza A NEGATIVE (Negative); Influenza B NEGATIVE (Negative); Respiratory Syncytial Virus Ce NEGATIVE (Negative)
[2024-03-08] MEDS: morphine 4 mg/mL SDV 1 mL IVP (19:16)
[2024-03-08] MEDS: ondansetron 2 mg/ML SDV 2 mL 4 MG IVP (19:16)
--- NOTE | 2024-03-08 19:26 | PC.NURSE ---
This nurse assumed care at shift change from Callie SMYTH.
[2024-03-08] MEDS: oxyCODONE-APAP 10-325 mg Tablet 1 TAB PO (21:19)
--- NOTE | 2024-03-08 21:19 | PC.NURSE ---
1 tab of oxycodone 10-325 sent home with patient per MD Duckworth.
== END 2024-03-08 20:22 | disposition home or self-care (01) ==
PROVIDERS: Emergency Provider Family Medicine; PCP Family Medicine
DX: M54.59 Other low back pain (principal); Z98.890 Other specified postprocedural states; R93.7 Abnormal findings on diagnostic imaging of other parts of musculoskeletal system; Z11.52 Encounter for screening for COVID-19; I10 Essential (primary) hypertension
CPT/HCPCS: 0241U; 36415; 72131; 72133; 80053; 83605; 85025; 85651; 86140; 87040; 96374; 96375; 99285; J2270; J2405

== ENCOUNTER 2024-03-15 09:45 | Outpatient (CLI) | payer OTHER, SELFPAY ==
--- NOTE | 2024-03-15 09:45 | MR_ITS ---
WS: [id number] MRI LUMBAR SPINE NONCONTRAST TECHNIQUE: Sagittal T1, T2 and STIR imaging. Axial T1 and T2 imaging. CLINICAL INFORMATION: Back Pain COMPARISON: Outside [place] [address] [place] [id number] FINDINGS: Mild lumbar curve. No acute compression. Postoperative changes L4-S1 pedicle screw fixation with inte rbody fusion grafts. Simple appearing fluid collection in the laminectomy defects likely postoperativ e. No specific findings to indicate abscess or CSF leak. L1-L2: Mild facet arthropathy. Spinal canal and foramen are patent. L2-L3: Mild facet arthropathy. Spinal canal and foramen are patent. L3-L4: Mild facet arthropathy. Mild RIGHT foraminal narrowing. Spinal canal and foramen are patent. M ild facet arthropathy. L4-L5: Minimal narrowing of the thecal sac due to dorsal fluid collection. Pedicle screw fixation wit h interbody fusion graft. Foramen are patent. Laminectomy defects. L5-S1: Postoperative changes. Spinal canal and foramina appear patent. Laminectomy defects. Visualized pelvic bony structures: Normal. Paravertebral soft tissues: Normal. MR/MR lumbar spine wo con* [id number] IMPRESSION: 1. Simple appearing fluid collection the laminectomy defects likely postoperat sindhu. Fluid collection appears slightly improved compared to 02/24/2024 consider ing differences in technique 2. Pedicle screw fixation L4-S1 with slight anterolisthesis L4 on L5 unchanged . 3. Spinal canal and foramen are patent at the fusion levels. 4. Minimal dorsal narrowing thecal sac L4-5 due to postoperative fluid and malu maKarie
== END 2024-03-15 09:58 | disposition home or self-care (01) ==
PROVIDERS: PCP Family Medicine; Visit Provider Orthopaedic Surgery
DX: M43.16 Spondylolisthesis, lumbar region (principal); M43.26 Fusion of spine, lumbar region
CPT/HCPCS: 72148

== ENCOUNTER → 2024-03-16 13:40 | Outpatient (BNVA) | payer OTHER, SELFPAY | PROVIDERS: PCP Family Medicine; Visit Provider Orthopaedic Surgery | DX: Z98.1 Arthrodesis status (principal); M54.9 Dorsalgia, unspecified | CPT/HCPCS: 72100 ==

== ENCOUNTER → 2024-03-25 14:20 | Outpatient (BNVA) | payer OTHER, SELFPAY | PROVIDERS: PCP Family Medicine; Visit Provider Orthopaedic Surgery | DX: Z98.1 Arthrodesis status (principal) | CPT/HCPCS: 72100 ==

== ENCOUNTER → 2024-05-27 09:10 | Outpatient (BNVA) | payer OTHER, SELFPAY | PROVIDERS: PCP Family Medicine; Visit Provider Orthopaedic Surgery | DX: Z98.1 Arthrodesis status (principal) | CPT/HCPCS: 72100 ==

== ENCOUNTER → 2024-08-16 12:35 | Outpatient (BNVA) | payer OTHER, SELFPAY | PROVIDERS: PCP Family Medicine; Visit Provider Internal Medicine Cardiovascular Disease | DX: R07.9 Chest pain, unspecified (principal); R94.31 Abnormal electrocardiogram [ECG] [EKG]; R30.0 Dysuria | CPT/HCPCS: 81000; 87086; 93005 ==

== ENCOUNTER 2024-08-20 09:50 | Outpatient (CLI) | payer OTHER, SELFPAY ==
--- NOTE | 2024-08-20 09:20 | MM_ITS ---
WS: [id number] BILATERAL SCREENING DIGITAL TOMOSYNTHESIS MAMMOGRAM WITH CAD HISTORY: Z12.39 - Encounter for other screening for malignant neop... COMPARISON: 08/20/2023 Bilateral CC and MLO views with tomosynthesis and synthetic mammography submitted. Computer aided detection analyzed. Breast composition: There are scattered areas of fibroglandular density. No suspicious masses, microcalcifications or architectural distortion. Fibroglandular pattern is similar to the prior examination. No mass or area of increasing distortion. There are a few tiny scattered calcifications. MM/MM [facility] tomosynthesis [id number] IMPRESSION: BI-RADS: 2 - Benign. FOLLOW UP: 1 Year Follow-up
== END 2024-08-20 09:51 | disposition home or self-care (01) ==
PROVIDERS: PCP Family Medicine; Visit Provider Nurse Practitioner Women's Health
DX: Z12.31 Encounter for screening mammogram for malignant neoplasm of breast (principal); R92.323 Mammographic fibroglandular density, bilateral breasts
CPT/HCPCS: 77063; 77067

== ENCOUNTER → 2024-08-24 09:11 | Outpatient (BNVA) | payer OTHER, SELFPAY | PROVIDERS: PCP Family Medicine; Visit Provider Orthopaedic Surgery | DX: Z98.1 Arthrodesis status (principal) | CPT/HCPCS: 72100 ==

== ENCOUNTER 2024-08-27 08:13 | Outpatient (CLI) | payer OTHER, SELFPAY ==
--- NOTE | 2024-08-27 08:30 | US_ITS ---
WS: [id number] Complete ABDOMINAL ULTRASOUND HISTORY: R10.31 - Right lower quadrant pain COMPARISON: None available. Liver: 15.8 cm in length. Liver is normal size. Increased attenuation throughout the liver from hepatic steatosis. Portal triads are not evident. No intrahepatic mass or dilatation. Portal Vein: Normal hepatopetal flow with monophasic waveform. Gallbladder: Normally distended gallbladder with no stones or wall thickening. CBD: 0.2 cm Pancreas: Normal size and echogenicity. Right kidney: 10.6 cm x 4.5 x 4.2 cm. Cortex:1.2 cm. Normal size and echogenicity. No hydronephrosis or mass. Left kidney: 10.8 (cm) cm x 4.7 (cm) cm x 5.2 (cm) cm. Cortex: 1.3 cm. Normal size and echogenicity. No hydronephrosis or mass. Spleen: 9.7 cm. Normal size and echogenicity. Aorta and IVC: Unremarkable abdominal aorta and IVC. US/US abdomen complete* [id number] Impression: 1. Technically difficult abdominal ultrasound due to body habitus. 2. Gallbladder is negative. 3. Diffuse moderate hepatic steatosis. 4. No renal obstruction.
== END 2024-08-27 08:14 | disposition home or self-care (01) ==
PROVIDERS: PCP Family Medicine; Visit Provider Nurse Practitioner Women's Health
DX: R10.31 Right lower quadrant pain (principal); R10.32 Left lower quadrant pain; K76.0 Fatty (change of) liver, not elsewhere classified
CPT/HCPCS: 76700

== ENCOUNTER 2024-10-08 08:03 | Outpatient (CLI) | payer OTHER, SELFPAY ==
--- NOTE | 2024-10-08 08:30 | USCV_ITS ---
Yadira Elena Age: 54 Gender: F : 1970 Exam Date: 10/08/2024 08:30 Ordering Phys: Ban Choi MD ([email or web address]) Technologist: DALY Exam Location: [facility] – [place] Indication: Murmur. Palpitations BP: 128 / 60 HR: 68 Rhythm: Sinus Technical Quality: Adequate MEASUREMENTS (Male / Female) Normal Values 2D ECHO LV Diastolic Diameter PLAX 4.4 cm 4.2 - 5.9 / 3.9 - 5.3 cm IVS Diastolic Thickness 1.0 cm 0.6 - 1.0 / 0.6 - 0.9 cm IVS Systolic Thickness 1.6 cm LVPW Diastolic Thickness 1.2 cm 0.6 - 1.0 / 0.6 - 0.9 cm LVPW Systolic Thickness 1.3 cm LVOT Diameter 2.0 cm LV Ejection Fraction 2D Teich 58.5 % LV Ejection Fraction MOD 4C 60.1 % LV Ejection Fraction MOD 2C 62.7 % LV Ejection Fraction 2C AL 64.4 % LA Diameter 3.4 cm RA Systolic Volume 4C AL 32.0 ml RA Systolic Volume 4C MOD 31.9 ml LA Sys Volume AL 35.9 cm cubed LA Sys Volume Index AL 17.9 cm cubed/m squared Aorta at Sinotubular Diameter 2.3 cm M-MODE LA Ao Ratio MM 1.2 AV Cusp Separation MM 1.4 cm DOPPLER AV Peak Velocity 227.7 cm/s LVOT Peak Velocity 121.0 cm/s AV Area Cont Eq vti 1.7 cm squared AV Area Cont Eq pk 1.6 cm squared MV Peak Velocity 107.0 cm/s MV Area PHT 4.4 cm squared Mitral E to A Ratio 0.8 TV Peak E Velocity 75.0 cm/s PV Peak Velocity 136.0 cm/s FINDINGS Left Ventricle Normal left ventricular size, systolic function and wall thickness, with no regional wall motion abnormalities. Left ventricular ejection fraction is estimated at 60 %. Normal diastolic function. Right Ventricle The right ventricle is normal in size and function. Right Atrium The right atrium is normal in size. Left Atrium The left atrium is normal in size. Mitral Valve Mildly thickened mitral valve. No mitral valve stenosis. Trace mitral valve regurgitation. Aortic Valve Moderate aortic valve calcification. Mild aortic valve stenosis, mean gradient 9.5 mmHg, JOLIE 1.7 cm squared. Trace aortic valve regurgitation. Tricuspid Valve Structurally normal tricuspid valve without significant stenosis or regurgitation. Pulmonary artery systolic pressure is normal. Pulmonic Valve Structurally normal pulmonic valve without significant stenosis. There is no pulmonic regurgitation. Pericardium Normal pericardium without effusion. Aorta Normal ascending aorta dimension. IVC The inferior vena cava appears normal. CONCLUSIONS Normal left ventricular size, systolic function and wall thickness, with no regional wall motion abnormalities. Left ventricular ejection fraction is estimated at 60 %. Normal diastolic function. Moderate aortic valve calcification. Mild aortic valve stenosis, mean gradient 9.5 mmHg, JOLIE 1.7 cm squared. Trace aortic valve regurgitation. There is no pericardial effusion. Right atrial pressure is around 5 mm of mercury. Ban Choi MD (Electronically Signed) Final Date: 11 October 2024 22:06 S
== END 2024-10-08 08:04 | disposition home or self-care (01) ==
LOC: RAD 08:05
PROVIDERS: PCP Family Medicine; Visit Provider Internal Medicine Cardiovascular Disease
DX: R00.2 Palpitations (principal); R01.1 Cardiac murmur, unspecified; I05.9 Rheumatic mitral valve disease, unspecified; I35.8 Other nonrheumatic aortic valve disorders; I35.0 Nonrheumatic aortic (valve) stenosis
CPT/HCPCS: 93306

== ENCOUNTER 2024-11-17 17:59 | Emergency (ER) | payer BC, MEDICAID, SELFPAY ==
[2024-11-17 18:03] VITALS: BMI 38.5
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
[2024-11-17 18:14] VITALS: BP 144/64; PULSE 71; RESP 17; TEMP 36.6; O2SAT 95
[2024-11-17 19:38] LABS: PCP Screen Urine Negative (Negative)
[2024-11-17 19:43] LABS: Specific Gravity, Urine 1.019 (1.005-1.030)
[2024-11-17 19:44] LABS: Add Urine Microscopic? YES; Glucose Urine UA Norm (Normal); Nitrate Urine Negative (Negative)
[2024-11-17 22:47] VITALS: BP 115/63; PULSE 62; O2SAT 95
--- NOTE | 2024-11-18 00:32 | ED.C_ITS ---
HPI - Psych General: Chief Complaint: Psychiatric Symptoms Stated Complaint: MHE Time Seen by Provider: 11/17/24 18:11 History of Present Illness: 54-year-old female patient presents to [facility] emergency department stating that she is having suicidal ideation. Patient states she has a plan patient states she would like to take all of her medications and never wake up again. Patient states she has a lot of stressors and things going on in her life and she just does not want to live anymore Related Data Home Medications ?Medication ?Instructions ?Recorded ?Confirmed pantoprazole 40 mg tablet,delayed 40 mg PO QPM 4 08/24/24 release (Protonix) Previous Rx's ?Medication ?Instructions ?Recorded Bone Growth Stimulator #1 ea 02/09/24 escitalopram oxalate 20 mg tablet 30 mg (1.5 x 20 mg) PO BEDTIME #45 08/03/24 tabs zolpidem 5 mg tablet 5 mg PO .hs PRN sleep 30 day s #30 08/03/24 tabs fluconazole 150 mg tablet 150 mg PO Q3D #3 tabs magnesium oxide 400 mg PO DAILY #90 tabs azithromycin 500 mg tablet See Rx Instructions PO .COM PLEX #3 08/18/24 tabs metronidazole 0.75 % topical gel 1 applic topical KASEY Y 5 days #45 08/18/24 grams oxybutynin chloride 5 mg See Rx Instructions .Route 0 10/05/24 tablet,extended release 24 hr .COMPLEX #180 tabs oxycodone 10 mg tablet 10 mg PO Q8H PRN pain 1 su h #90 10/25/24 tabs Allergies Allergy/AdvReac Type Severity Reaction Status Date / Time heparin Allergy Mild Unknown Verified 08/16/24 13:07 aspirin Allergy ALGY-Hives Verified 08/16/24 13:07 Review of Systems General: Reports: 10 or more systems reviewed and unremarkable except in HPI and below PFSH ED PFSH: Medical History (Updated 09/06/24 @ 09:34 by Tete Mckee NP) Palpitation Depression Psychiatric care Hypertension History of migraine Surgical History History of hysterectomy Family History Other Cancer Denies family history of Diabetes CAD (coronary artery disease) Clotting disorder Dementia Hyperlipidemia Psychiatric illness Chronic kidney disease (CKD) Suicide Anesthesia complication Bleeding disorder Family history of premature coronary artery disease Lung disease Hypertension Stroke Social History Smoking and tobacco/nicotine status: former use of tobacco/nicotine Physical Exam Const: COMMON NORMALS: no acute distress, patient oriented x3, no limitations, healthy appearing, alert and well nourished EXAM LIMITATIONS: no altered mental status Chest: COMMONS NORMALS: normal inspection of the chest, normal palpation of entire chest wall, normal inspection of the breasts and normal palpation of the breasts Breast/axilla inspection: Yes normal inspection of the breasts BREAST/AXILLA PALPATION: Yes normal palpation of the breasts NIPPLE/AREOLA: Yes nipples/areola normal Resp: COMMON NORMALS: normal respiratory effort, No retractions, No use of acc essory muscles and clear to auscultation bilaterally AUSCULTATION: clear to auscultation bilaterally Cardio: COMMON NORMALS: regular rate, regular rhythm, S1 normal heart sound present and S2 normal heart sound present RATE: regular rate RHYTHM: regular rhythm HEART SOUNDS: S1 normal heart sound present and S2 normal heart sound present GI: COMMON NORMALS: Normal to inspection, nondistended, normoactive bowel sounds present and Soft to palpation PALPATION: Yes Soft to palpation and Yes Tenderness to palpation present (GI) Details: LLQ : COMMON NORMALS: Yes normal external appearance, Yes normal appearance of the vagina, Yes normal bimanual exam, Yes No adnexal tenderness and Yes no masses SPECULUM EXAM - CERVIX: Yes Cervix absent BIMANUAL EXAM - VAGINA & UTERUS: Yes normal bimanual exam Neuro: COMMON NORMALS: patient oriented x3 SENSORIUM/ORIENTATION: Yes alert Psych: COMMON NORMALS: mental status grossly normal, cooperative, normal affect and speech normal SPEECH: Yes normal speech OTHER: SI Skin: COMMON NORMALS: no rashes or lesions noted, no wounds and turgor normal GENERAL SKIN EXAM: no rashes or lesions noted and turgor normal Course Vital Signs: Vital signs: Vital Signs Temperature 97.9 F 11/17/24 18:14 Pulse Rate 62 11/17/24 22:47 Respiratory Rate 17 11/17/24 18:14 Blood Pressure 115/63 11/17/24 22:47 Pulse Oximetry 95 11/17/24 22:47 Oxygen Delivery Me thod Room Air 11/17/24 18:14 MDM - Psych Medical Decision Making 54-year-old female patient presents to the emergency department stating that she is having suicidal ideation. Patient states she has a plan patient states she would like to take all of her medications and never wake up again. Patient states she has a lot of stressors and things going on in her life and she just does not want to live anymore Given patient's suicidal ideation patient will need to be admitted for behavioral health evaluation and stabilization. Care transitioned to Dr. Hirsch at this time Lab Data Laboratory Results Urine Color Yellow (Yellow) 11/17/24 18:37 Urine Appearance Clear (CLEAR) 11/17/24 18:37 Urine pH 5 (5-7) 11/17/24 18:37 Ur Specific [employer] 1.019 (1.005-1.030) 11/17/24 18:37 Urine Protein Neg (Negative) 11/17/24 18:37 Urine Glucose (UA) Norm (Normal) 11/17/24 18:37 Urine Ketones Negative (Negative) 11/17/24 18:37 Urine Blood Neg (Negative) 11/17/24 18:37 Urine Nitrate Negative (Negative) 11/17/24 18:37 Urine Bilirubin Neg (Negative) 11/17/24 18:37 Urine Urobilinogen 0.2 mg/dL (Negative) 11/17/24 18:37 Ur Leukocyte Esterase Negative (Negative) 11/17/24 18:37 Urine RBC 3-5 /hpf (0-2) 11/17/24 18:37 Urine WBC 0-4 /hpf (0-5) H 11/17/24 18:37 Ur Squamous Epith Cells 0-4 /hpf (0-5) H 11/17/24 18:37 Amorphous Sediment Not Reportable 11/17/24 18:37 Urine Bacteria 1+ /hpf (NONE) H 11/17/24 18:37 Hyaline Casts 1.65 /lpf 11/17/24 18:37 Urine Mucus None /hpf 11/17/24 18:37 Urine Opiates Screen Negative ng/mL (Negative) 11/17/24 18:37 Ur Barbiturates Screen Negative ng/mL (Negative) 11/17/24 18:37 Ur Phencyclidine Scrn Negative ng/mL (Negative) 11/17/24 18:37 Ur Amphetamines Screen Negative ng/mL (Negative) 11/17/24 18:37 U Benzodiazepines Scrn Negative ng/mL (Negative) 11/17/24 18:37 Urine Cocaine Screen Negative ng/mL (Negative) 11/17/24 18:37 U Marijuana (THC) Screen Positive ng/mL (Negative) H 11/17/24 18:37 No radiology studies performed this visit Discharge Plan Discharge Condition: Stable Prescriptions: No Action fluconazole 150 mg tablet 150 mg PO Q3D Qty: 3 0RF Rx Instructions: may repeat third dose 72 hrs after second dose if symptoms persist metronidazole 0.75 % gel 1 applic topical DAILY 5 Days Qty: 45 0RF azithromycin 500 mg tablet See Rx Instructions PO .COMPLEX Qty: 3 0RF Rx Instructions: For 500 mg dose pack: take 500 mg once daily for 3 days PO magnesium oxide 400 mg magnesium tablet 400 mg PO DAILY Qty: 90 3RF zolpidem 5 mg tablet 5 mg PO .hs PRN (Reason: sleep) 30 Days Qty: 30 3RF escitalopram oxalate 20 mg tablet 30 mg PO BEDTIME Qty: 45 5RF (DME) Bone Growth Stimulator See Rx Instructions .Route .MEDSUPPLY Qty: 1 0RF Rx Instructions: As directed oxybutynin chloride 5 mg tablet extended release 24hr See Rx Instructions .ROUTE .COMPLEX Qty: 180 0RF Dose Instruction: TAKE 1 TABLET BY MOUTH ONCE DAILY Rx Instructions: TAKE 1 TABLET BY MOUTH ONCE DAILY oxycodone 10 mg tablet 10 mg PO Q8H MDD 6 PRN (Reason: pain) 30 Days Qty: 90 0RF pantoprazole [Protonix] 40 mg tablet,delayed release (DR/EC) 40 mg PO QPM Referrals: Indra Hines [Primary Care Provider, Family Practice] Print Language: Iranian Coding Level of Care Code ED Wrapper Stemmer Hand for Alexandria Mosquera
--- NOTE | 2024-11-18 06:58 | ECG_ITS ---
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 Measurements Intervals [place] Rate: 65 P: 61 ID: [id number] QRS: 38 QRSD: 89 T: 45 QT: 402 QTc: 421 Interpretive Statements SINUS RHYTHM Compared to ECG 08/16/2024 13:04:40 T-wave abnormality no longer present Electronically Signed On 11-20-2024 14:14:07 CDT by Jose Tavares M.D. [email or web address]
[2024-11-18 07:53] LABS: Hematocrit 35.0 % (36-47); Hemoglobin 11.10 g/dL (11.27-16.99); Mean Corpuscular HGB Conc 31.7 g/dL (30-55); Mean Corpuscular Hemoglobin 29.1 pg (27-33); Mean Corpuscular Volume 91.9 fl (85-98); Nucleated Red Blood Cells % 0 %; Platelet Count 241 10^3/cmm (157-399); Red Blood Count 3.81 10^6/uL (3.85-5.65); White Blood Count 5.26 10^3/uL (3.29-11.43)
[2024-11-18 07:55] LABS: Respiratory Syncytial Virus Ce NEGATIVE (Negative); SARS-CoV-2 PCR NEGATIVE (Negative)
[2024-11-18 08:10] LABS: Alanine Aminotransferase 13 U/L (0-33); Albumin Level 3.8 g/dL (3.5-5.2); Alkaline Phosphatase 124 U/L (35-105); Anion Gap 15.3 (5-19); Aspartate Amino Transferase 12 U/L (0-32); Blood Urea Nitrogen 12 mg/dL (6-20); Calcium 9.1 mg/dL (8.5-10.5); Carbon Dioxide 26 mmol/L (22-29); Chloride 101 mmol/L (98-107); Creatinine Clr Calc Pharmacy 89.3112; Globulin 3.4 g/dL (1.3-4.6); Glucose 91 mg/dL (65-115); Osmolality Calculated 285 mOsm/kg (285-295); Potassium 4.3 mmol/L (3.5-5.1); Sodium 138 mmol/L (136-145); Total Protein 7.2 g/dL (6.6-8.7)
[2024-11-18 08:29] LABS: HCG, Serum Qual Negative (Negative)
--- NOTE | 2024-11-18 08:39 | PC.NURSE ---
pt provided with breakfast tray
--- NOTE | 2024-11-18 11:09 | PC.PHAR ---
Pt states she is miserable due to last time she took her pain medication was Friday pm 11/16/24. Pt can take up to 3 times daily but primarily takes in the evening.
[2024-11-18] MEDS: oxyCODONE 5 mg IR Tab/Cap 10 MG PO (11:58)
== END 2024-11-18 14:40 ==
PROVIDERS: Family Medicine; Emergency Provider Registered Nurse; PCP Family Medicine
DX: R45.851 Suicidal ideations (principal); I10 Essential (primary) hypertension; Z79.899 Other long term (current) drug therapy; Z88.8 Allergy status to other drugs, medicaments and biological substances
CPT/HCPCS: 36415; 80053; 80306; 81001; 84703; 85025; 87637; 93005; 99285; J9999

== ENCOUNTER → 2024-11-25 08:54 | Outpatient (BNVA) | payer OTHER, BC, MEDICAID, SELFPAY | PROVIDERS: PCP Family Medicine; Visit Provider Orthopaedic Surgery | DX: Z98.1 Arthrodesis status (principal); F32.9 Major depressive disorder, single episode, unspecified; F43.12 Post-traumatic stress disorder, chronic | CPT/HCPCS: 72100; 80061; 83036 ==

== ENCOUNTER → 2025-02-15 08:18 | Outpatient (BNVA) | payer BC, MEDICAID, SELFPAY ==
[2024-12-09 10:55] VITALS: BP 121/72; BMI 40.4
== END ==
PROVIDERS: Family Provider Nurse Practitioner; PCP Nurse Practitioner; Visit Provider Orthopaedic Surgery
DX: M48.062 Spinal stenosis, lumbar region with neurogenic claudication (principal); Z47.89 Encounter for other orthopedic aftercare; Z98.1 Arthrodesis status
CPT/HCPCS: 72100

== ENCOUNTER 2025-02-18 13:56 | Outpatient (CLI) | payer BC, MEDICAID, SELFPAY ==
[2024-12-09 10:55] VITALS: BP 121/72; BMI 40.4
--- NOTE | 2025-02-18 14:30 | XR_ITS ---
WS: [id number] SCREENING DEXA SCAN [employer] CLINICAL INFORMATION: Z13.820 - Encounter for screening for osteoporosis COMPARISON: None. FINDINGS: The LEFT forearm bone mineral density measures 0.483. This corresponds to a T score score of 0.5 and Z score of 1.1. Left femoral neck bone mineral density measures 0.998 g/cm2. This corresponds to a T score of -0.1 and Z score of 0.0. Right femoral neck bone mineral density measures 1.064 g/cm2. This corresponds to a T score 0.4of and Z score of 0.5. Mean femoral neck bone mineral density measures 1.031 g/cm2. This corresponds to a T score of 0.2 and Z score of 0.3. XR/XR DEXA axial skeleton* [id number] IMPRESSION: Normal bone mineralization. Patient's FRAX calculated 10 year probability for major osteoporotic fracture i s 3.6% and osteoporotic hip fracture is 0.3%.
== END 2025-02-18 13:57 | disposition home or self-care (01) ==
LOC: RAD 13:57
PROVIDERS: PCP Family Medicine; Visit Provider Nurse Practitioner
DX: Z13.820 Encounter for screening for osteoporosis (principal)
CPT/HCPCS: 77080

== ENCOUNTER → 2025-03-09 11:34 | Outpatient (BNVA) | payer BC, MEDICAID, SELFPAY ==
[2024-12-09 10:55] VITALS: BP 121/72; BMI 40.4
== END ==
PROVIDERS: PCP Nurse Practitioner; Visit Provider Nurse Practitioner
DX: Z79.899 Other long term (current) drug therapy (principal)
CPT/HCPCS: 80053; 84443; 85025